=== PATIENT | female | born 1975 | race Caucasian/White ===

== ENCOUNTER 2019-06-18 13:45 | Inpatient (IN) ==
[2019-06-18 14:42] LABS: URINE SOURCE CLEAN CATCH
[2019-06-18 14:46] LABS: BILIRUBIN URINE NEGATIVE (NEGATIVE); BLOOD URINE TRACE (NEGATIVE); COLOR YELLOW; GLUCOSE URINE 500 mg/dL (NEGATIVE); KETONE URINE 40 mg/dL (NEGATIVE); LEUKOCYTES URINE SMALL (NEGATIVE); NITRITE URINE NEGATIVE (NEGATIVE); PROTEIN URINE 100 mg/dL (NEGATIVE); SP GRAVITY URINE 1.016; TURBIDITY URINE CLEAR (CLEAR); UR EPITHELIAL CELLS <10 /HPF (<10); URINE BACTERIA 1+ /HPF; URINE RBC <10 /HPF (<10); URINE WBC <10 /HPF (<10); UROBILINOGEN URINE NORMAL (NORMAL)
[2019-06-18 16:31] LABS: BASO# 0.01 X1000 (0.0-0.2); BASO% 0.1 % (0.0-0.8); EOS# 0.08 X1000 (0.0-0.7); EOS% 0.8 % (0.0-10.0); HEMATOCRIT 39.2 % (37.0-47.0); HEMOGLOBIN 13.6 g/dL (12.0-16.0); IMM GRAN# 0.05 X1000 (0.0-0.04); IMM GRAN% 0.5 % (0.0-0.5); LYMPH# 1.06 X1000 (1.2-3.4); LYMPH% 10.3 % (20.5-51.1); MCH 32.4 PG (27-31); MCHC 34.7 g/dL (33-37); MCV 93.3 FL (81-99); MONO# 0.97 X1000 (0.11-0.59); MONO% 9.4 % (1.7-9.3); MPV 8.8 FL (7.4-10.4); NEUT% 78.9 % (42.2-75.2); PLT 321 X1000 (130-400); WBC 10.27 X1000 (4.8-10.8)
--- NOTE | 2019-06-18 16:47 | Diag Imaging Result Doc PS360 ---
EXAM: CT HEAD W/O CONTRAST HISTORY: seizure TECHNIQUE: CT head without contrast COMPARISON: 02/28/2018 FINDINGS: No parenchymal hemorrhage. No epidural or subdural hematoma. No subarachnoid hemorrhage. No mass identified on this noncontrasted exam. No hydrocephalus. No sinus opacification. IMPRESSION: No hemorrhage. Negative brain CT without contrast. This exam was performed using automated exposure control, adjustment of mA or kV according to patient size, and/or use of iterative reconstruction technique. Electronically signed by Jun De La O 06/18/2019 4:45 PM
--- NOTE | 2019-06-18 17:02 | EKG Report ---
Test Performed on : 06/18/2019 4:56:49 PM Test Reason : seizure Blood Pressure : / mmHG Vent. Rate : 106 BPM Atrial Rate : 106 BPM P-R Int : 160 ms QRS Dur : 100 ms QT Int : 340 ms P-R-T Axes : 058 021 023 degrees QTc Int : 451 ms Sinus tachycardia. Possible Left atrial enlargement Cannot rule out Anterior infarct , age undetermined Abnormal ECG When compared with ECG of 14-FEB-2018 08:50, Nonspecific T wave abnormality no longer evident in Anterior leads Unconfirmed Result
[2019-06-18 17:06] LABS: AGAP 16; ALB/GLOB RATIO 1.1; ALBUMIN 3.8 g/dL (3.5-5.0); ALKALINE PHOSPHATASE 177 U/L (32-104); BUN 4 mg/dL (8-22); CALCIUM 9.5 mg/dL (8.8-10.2); CHLORIDE 84 mmol/L (98-107); COSMO 242; CREATININE 0.4 mg/dL (0.5-0.9); ESTIMATED GFR > 60; GLUCOSE 245 mg/dL (70-104); GOT 22 U/L (10-30); GPT 20 U/L (10-36); POTASSIUM 3.9 mmol/L (3.5-5.1); TCO2 17 mmol/L (25-35); TOTAL BILIRUBIN 0.26 mg/dL (0.20-1.00); TOTAL PROTEIN 7.2 g/dL (6.3-8.3)
[2019-06-18] MEDS ORDERED: NS 1,000 ML IV ONE (17:10)
[2019-06-18] MEDS ORDERED: ZOFRAN IV ONE (17:10)
[2019-06-18 17:12] LABS: SODIUM 118 mmol/L (136-145)
--- NOTE | 2019-06-18 17:14 | Diag Imaging Result Doc PS360 ---
EXAM: CHEST-1 VIEW HISTORY: cough TECHNIQUE: Chest single view COMPARISON: None. FINDINGS: Poor inspiratory effort. The heart is not enlarged. The vessels are not distended. There are no infiltrates. No effusion identified. IMPRESSION: No pneumonia Electronically signed by Jun De La O 06/18/2019 5:11 PM
[2019-06-18] MEDS ORDERED: DILANTIN IV ONE (17:20)
--- NOTE | 2019-06-18 17:25 | PROVIDER DOCUMENTATION ---
This chart was entered by Negra Nava Scribe, acting as scribe for Minh Gonzalez MD. HPI-General Adult - General Stated Complaint: SEIZURE Time Seen by Provider: 06/18/19 14:01 Source: patient ( pt), EMS, other (caregiver) Allergies/Adverse Reactions: Patient Allergies Allergy/AdvReac Type Severity Reaction Status Date / Time codeine Allergy HIVES Verified 06/18/19 16:35 Penicillins Allergy RASH Verified 06/18/19 16:35 Home Medications: Home Medication List Medication Instructions Recorded Confirmed Last Taken Type Cetirizine [Zyrtec] 10 mg PO DAILY 11/17/15 06/18/19 06/18/19 History Divalproex Sodium 2 tab PO BID 11/17/15 06/18/19 06/18/19 History Docusate Sodium [Doc-Q-Lace] 100 mg PO BID 11/17/15 06/18/19 06/18/19 History Escitalopram [Lexapro] 20 mg PO DAILY 11/17/15 06/18/19 06/18/19 History Glipizide [Glipizide Xl] 10 mg PO BID 11/17/15 06/18/19 06/18/19 History Metformin HCl 2 tab PO BID 11/17/15 06/18/19 06/18/19 History Phenytoin Sodium Extended 200 mg PO 0700,1900 01/22/16 06/18/19 06/18/19 History [Dilantin] Amlodipine Besylate/Benazepril 1 each PO DAILY 01/21/18 06/18/19 06/18/19 History [Amlodipine-Benazepril 5-20 mg] Atorvastatin Calcium 20 mg PO DAILY 01/21/18 06/18/19 06/17/19 History Medroxyprogesterone Acetate 150 mg IM DIRECTED 01/21/18 06/18/19 04/15/19 History [Depo-Provera] Sitagliptin Phosphate [Januvia] 100 mg PO DAILY 01/21/18 06/18/19 06/18/19 History Zolpidem [Ambien] 5 mg PO QHS 05/08/18 06/18/19 06/17/19 History Lorazepam 0.5 mg PO QAM 60 Days #60 tab 09/09/2706/18/19 06/18/19 Rx Polyethylene Glycol 3350 [Miralax] 17 gm PO BID 30 Days #1 powder, 05/11/18 06/18/19 06/18/19 Rx packet Fluticasone 50 Mcg Nasal [place] 2 spr INH DAILY 06/18/19 06/18/19 06/18/19 History [Flonase] Linaclotide [Linzess] 1 cap PO DAILY 06/18/19 06/18/19 06/18/19 History Melatonin 1 cap PO QHS 06/18/19 06/18/19 06/17/19 History Mirtazapine [Remeron] 0.5 tab PO QHS 06/18/19 06/18/19 06/17/19 History Multivitamin [Multivitamins] 1 tab PO DAILY 06/18/19 06/18/19 06/18/19 History Omeprazole [Prilosec] 1 cap PO QAM 06/18/19 06/18/19 06/18/19 History Quetiapine [Seroquel] 1 tab PO QHS 06/18/19 06/18/19 06/17/19 History Ziprasidone [Geodon] 1 cap PO BID 06/18/19 06/18/19 06/18/19 History - History of Present Illness -Gen Adult Nature of Presenting Problems: 43 yowf presents to the ed via ems (first response) post seizure like activity. pt has caregiver at bedside and pt is back to baseline on exam in ed. pt is nontoxic in appearance. caregiver witnessed seizure and sts has been years since her last seizure. pt was sitting in a chair when she began to shake. pt has noted wound to medial RLE looks to be healing well. caregiver sts pt has colon cancer and the last 2 days has not felt well and had diarrhea . Location of Pain/Injury: reports: none Pain Radiation: reports: no radiation Quality of Pain: reports: none Severity: reports: moderate Onset/Duration: reports: just prior to arrival Timing: reports: gone now Context/Activities at Onset: reports: light activity Modifying Factors: improves with: nothing Associated Symptoms: reports: diarrhea, seizure. denies: back/neck pain, chest pain, cough, diaphoresis, fever/chills, headaches, nausea, shortness of breath, vomiting Similar Symptoms Previously?: Yes (hx of seizures) Recently seen or treated by another doctor?: No Review of Systems - Adult - REVIEW OF SYSTEMS - ADULT ROS:: caregiver with pt Constitutional: denies: chills, fever Eyes: reports: no symptoms reported Ears, Nose, Mouth & Throat: reports: no symptoms reported Cardiovascular: denies: chest pain, palpitations Respiratory: denies: cough, shortness of breath, wheezing Gastrointestinal: reports: see HPI, diarrhea. denies: nausea, vomiting Genitourinary: reports: no symptoms reported Musculoskeletal: denies: back pain, neck pain Integumentary: reports: no symptoms reported Neurological: reports: see HPI, seizure. denies: dizziness/vertigo, headache/migraines Psychiatric: reports: no symptoms reported Endocrine: reports: no symptoms reported Hematologic/Lymphatic: reports: no symptoms reported Allergic/Immunologic: reports: no symptoms reported All Other Systems: Reviewed and Negative Past History - Adult - PAST MEDICAL HISTORY-ADULT Review of Records: reports: Old Records Reviewed, Nursing Assessment Review, Medications Reviewed, Social history reviewed & non-contributory. Major Childhood Illnesses: reports: denies history Cardiovascular: reports: HTN, hyperlipidemia Respiratory: reports: denies history Gastrointestinal: reports: cancer (stage 3 colon) Genitourinary: reports: denies history Musculoskeletal: reports: denies history Neurological: reports: cognitive dysfunction (MR), Seizures/Epilepsy Psychiatric: reports: denies history Endocrine/Immune: reports: Diabetes Diabetes Type: Type 2 Other Conditions: reports: denies history - PRIOR SURGERIES/PROCEDURES Surgical/Procedure History: reports: colonoscopy, cholecystectomy - IMMUNIZATION STATUS Childhood Immunizations: See Nurse Assessment Flu Vaccine: See Nurse Assessment - FAMILY HISTORY Family History: reviewed, not pertinent - SOCIAL HISTORY Smoking: denies Substance Use: denies Alcohol Use Frequency: never Living Situation: care facility Physical Exam-General - PHYSICAL EXAM-ADULT Initial Vital Signs Reviewed: Yes - CONSTITUTIONAL General Appearance: appears well, alert, no apparent distress (pt is back to baseline MR pt), obese - EYES Eyes: PERRL/EOMI, pink conjunctivae - HEAD, EARS, NOSE, MOUTH & THROAT HENMT: moist mucous membranes - NECK Neck: non-tender, full range of motion, supple, normal inspection - RESPIRATORY Respiratory: chest non-tender, lungs clear, normal breath sounds, increased rate (36) - CARDIOVASCULAR Cardiovascular: normal peripheral pulses, tachycardia (114) - CHEST (BREASTS) Chest/Breast: deferred - GASTROINTESTINAL (ABDOMEN) Abdominal Exam: normal bowel sounds, non tender, soft, no organomegaly, no pulsatile mass - GENITOURINARY Female Genitalia/Pelvic Exam: deferred Rectal Exam: deferred Hemoccult Exam: deferred - LYMPHATIC Lymphatic: no adenopathy - MUSCULOSKELETAL Back Exam: normal inspection, no CVA tenderness, no vertebral tenderness Extremity: normal range of motion, non-tender, normal capillary refill, other (has small wound noted to anterior medial RLE. looks to be healing well) - SKIN Integumentary: normal color, normal turgor, warm/dry, other (small wound noted to RLE) - NEUROLOGIC Neurologic: grossly normal - PSYCHIATRIC Psych/Mental Status: oriented x 3 Progress - PLAN OF CARE/RESULTS Progress/Plan/Lab Results: Orders Category Date Time Status CT HEAD W/O CONTRAST [CT] Stat Exams 06/18/19 14:02 Ordered CBC WITH DIFF [HEME] Stat Lab 06/18/19 14:02 Uncollected COMPREHENSIVE METABOLIC PANEL [CHEM] Stat Lab 06/18/19 14:02 Uncollected PHENYTOIN [TDM] Stat Lab 06/18/19 14:02 Uncollected URINALYSIS W/POSS RFLX CULT [URINALYSIS] Stat Lab 06/18/19 14:02 Uncollected EKG [EKG] Stat Ther 06/18/19 14:02 Ordered Result Diagrams: 06/18/19 16:25 06/18/19 16:25 - REASSESSMENT Reassessment #1 Time Reassessed: 14:23 Status: unchanged (pt still feels not well) Reassessment Comment: dr gonzalez at bedside Reassessment #2 Time Reassessed: 17:04 Status: unchanged (pt now nausea and vomiting) Reassessment Comment: dr gonzalez at bedside - EKG 1 Time of EKG reading by physician:: 16:56 EKG Read and Signed by:: Minh Gonzalez EKG Interpretation (*Must complete 3 of following elements*): Abnormal Rate: 106 Rhythm: sinus tachycardia [place]: normal QRS: other (possible left atrial enlargmeent) PA Interval: normal ST Wave: normal Comments: cannot rule out anterior infarct, age undetermined - XRAY 1 XRAY: Bilateral XRAY Study: Chest Impression: See EMR Report (EXAM: CHEST-1 VIEW HISTORY: cough TECHNIQUE: Chest single view COMPARISON: None. FINDINGS: Poor inspiratory effort. The heart is not enlarged. The vessels are not distended. There are no infiltrates. No effusion identified. IMPRESSION: No pneumonia Electronically signed by Jun De La O 06/18/2019 5:11 PM 06/18/19 1711 Interpreting Physician: Jun De La O MD Dictated Date/Time: 06/18/19 1711 cc: Minh Gonzalez MD; Heladio Silverman MD) - CT/MRI 1 CT Study: Head Impression: See EMR Report (EXAM: CT HEAD W/O CONTRAST HISTORY: seizure TECHNIQUE: CT head without contrast COMPARISON: 02/28/2018 FINDINGS: No parenchymal hemorrhage. No epidural or subdural hematoma. No subarachnoid hemorrhage. No mass identified on this noncontrasted exam. No hydrocephalus. No sinus opacification. IMPRESSION: No hemorrhage. Negative brain CT without contrast. This exam was performed using automated exposure control, adjustment of mA or kV according to patient size, and/or use of iterative reconstruction technique. Electronically signed by Jun De La O 06/18/2019 4:45 PM 06/18/19 1645 Interpreting Physician: Jnu De La O MD Dictated Date/Time: 06/18/19 1644 cc: Minh Gonzalez MD; Heladio Silverman MD) - CONSULTS/PCP/HOSPITALIST Notification #1 *Consult/PCP/Hospitalist*: hospitalist Time Discussed: 17:20 (spoke with Rosalia) Consult Disposition: Admit Departure - Departure Date of Disposition Decision: 06/18/19 Time of Disposition Decision: 17:23 DIAGNOSIS: Seizure, Hyponatremia, Abdominal pain, UTI (urinary tract infection) Disposition: ADMITTED INPATIENT 09 Certified Medical Emergency: Emergent Condition: Fair Referrals and Follow-Ups: Heladio Silverman MD [Primary Care Provider] - - Critical Care Note This patient required my direct & personal management of CC.: Yes Total Time (mins): 37 Critical Care Statement: This patient required my direct personal management to treat or rule out processes, the absence of which, could potentiallly result in sudden, clinically significant life or limb threatening deterioration. Attestation - Physician/ IVETTE Attestation Patient care was provided by Advanced Practice Provider:: No The physician spent face to face time with patient:: Yes Advanced Practice Provider documentation review:: Supervising physician onsite and consulted in the evaluation and care of this patient. The physician did have a face to face encounter with the patient. This chart was documented by the indicated scribe, (Negra Nava Scribe) and accurately reflects the services I performed and decisions made by me, Minh Gonzalez MD, as attested by the provider's signature.
[2019-06-18] MEDS ORDERED: ATIVAN IV ONE ×2 (17:48→18:15)
[2019-06-18] MEDS ORDERED: LOPRESSOR IV ONE (17:48)
[2019-06-18] MEDS ORDERED: ATIVAN IV PRN (17:49)
[2019-06-18 17:50] LABS: INR 0.99; PROTIME 13.2 Seconds (11.0-16.0); PTT 25.6 Seconds (22.3-41.8)
[2019-06-18] MEDS ORDERED: ZOFRAN IV PRN (17:58)
[2019-06-18] MEDS ORDERED: NS 1,000 ML IV SCH ×2 (18:00→22:45)
[2019-06-18] MEDS: DILANTIN PO SCH ×2 (18:45→20:34)
--- NOTE | 2019-06-18 19:55 | Diag Imaging Result Doc PS360 ---
EXAM: CT THORAX/ABD/PELVIS W/CON HISTORY: cough/sob/abd pain/diarrhea TECHNIQUE: 1. CT chest with intravenous contrast 2. CT abdomen and pelvis with intravenous contrast COMPARISON: 11/18/2018 FINDINGS: Chest: No pleural effusions. No cardiomegaly. Pulmonary edema. No enlarged lymph nodes. No consolidation. No lung mass. No bronchiectasis. Mild scoliosis. Abdomen and pelvis: The gallbladder has been removed. Overall increase in the size of the largest hepatic hypodense masses. The largest measures almost 5 cm in size on the current exam. Normal spleen, pancreas, adrenal glands, and kidneys. No hydronephrosis. Normal aorta. No bowel obstruction. Normal appendix. No abscess. No ascites. The urinary bladder is distended and is normal. Normal uterus. IMPRESSION: Chest: Pulmonary edema Abdomen and pelvis: Worsening hepatic metastases. This exam was performed using automated exposure control, adjustment of mA or kV according to patient size, and/or use of iterative reconstruction technique. Electronically signed by Jun De La O 06/18/2019 7:52 PM
--- NOTE | 2019-06-18 19:55 | HISTORY AND PHYSICAL ---
PRIMARY CARE PROVIDER: Dr. Heladio Silverman. CHIEF COMPLAINT: Abdominal pain with diarrhea, cough, and shortness of breath. HISTORY OF PRESENT ILLNESS: Ms. Radha Wick is a 43-year-old female with a medical history of mental retardation, diabetes mellitus type 2, seizure disorder, and colon cancer with colectomy, and possible liver cancer, followed by Dr. Mcclain. She now presents with a 1-day history of excessive diarrhea, a cough that has started over the last 24 hours as well. There is no discoloration of the stool. It is brown and loose. She has had generalized abdominal pain. No recent antibiotic therapy. Not coughing up any colors in particular. She did have a seizure at her [facility] today which is what brought her in, according to the sitter who is currently at the bedside. She has been drinking excessive amounts of water. Labs shows that she is hyperglycemic and hyponatremic. During examination, there were no abnormal breath sounds, but she did have excessive bouts of aggressive coughing with anxiety and shortness of breath, so we will do an admission and we will further evaluate and treat. PAST MEDICAL HISTORY: 1. Colon cancer with colectomy. 2. Seizure disorder. 3. Mental retardation. 4. Diabetes mellitus type 2. 5. History of pulmonary emboli. 6. Anxiety. 7. Frequent urinary tract infections. 8. History of hyponatremia. 9. History of diarrhea secondary to colon resection. SURGICAL HISTORY: 1. Cholecystectomy. 2. Descending colectomy. SOCIAL HISTORY: No tobacco, alcohol, or illicit drug use. She is a current resident in a [facility]. She has sitters with her at this time. FAMILY HISTORY: Unknown. ALLERGIES: Codeine and penicillin. HOME MEDICATIONS: 1. Ambien 5 mg p.o. nightly. 2. Melatonin 5 mg p.o. nightly. 3. Remeron 7.5 mg p.o. nightly. 4. Seroquel 200 mg p.o. nightly. 5. Amlodipine/benazepril 5/20 one tablet p.o. daily. 6. Atorvastatin calcium 20 mg p.o. daily. 7. Depo-Provera. 8. Dilantin 200 mg p.o. twice daily. 9. Depakote 1000 mg p.o. twice daily. 10. Docusate sodium 100 mg p.o. twice daily. 11. Flonase intranasally daily. 12. Geodon 40 mg p.o. twice daily. 13. Glipizide 10 mg p.o. twice daily. 14. Januvia 100 mg p.o. daily. 15. Lexapro 20 mg p.o. daily. 16. Linzess 290 mg p.o. daily. 17. Metformin 1000 mg p.o. twice daily. 18. Multivitamin 1 tablet p.o. daily. 19. Prilosec 20 mg p.o. daily. 20. Zyrtec 10 mg p.o. daily. 21. Ativan 0.5 mg p.o. daily. 22. MiraLAX 17 g p.o. twice daily. REVIEW OF SYSTEMS: Difficult to obtain from the patient alone. A lot of symptoms were obtained through the sitters who are at the bedside. They deny that she had any kind of fevers. PHYSICAL EXAMINATION: VITAL SIGNS: Temperature 97.8 degrees, heart rate 108, respiratory rate 35, blood pressure 147/98, O2 saturation 100% on room air. She is 5 feet 4 inches tall, 154 pounds. BMI is 26.4. GENERAL: Ms. Radha Wick is a 43-year-old female. She is highly anxious, consistently requesting to sit on the side of the bed, although she was losing balance when she was able to get up to the bedside commode. She answers minimal questions. HEENT: Atraumatic, normocephalic. Pupils equal, round, reactive to light. Extraocular movements intact. Mucous membranes are dry. NECK: Trachea midline. CARDIOVASCULAR: S1, S2. Tachycardic rate and rhythm. No rubs, gallops, murmurs. No lower extremity edema. +2 dorsalis and radial pulses. Negative JVD or carotid bruits. PULMONARY: Clear to auscultate. Bilateral breath sounds. No accessory muscle use. She has work of breathing secondary to her anxiety and tolerating room air. She is tachypneic. GI: Soft, tender in all 4 quadrants. Positive bowel sounds x4. EXTREMITIES: Moves all extremities equally. Full range of motion. NEUROLOGIC: Unable to assess. She will not answer really questions, but she will talk. She is off balance with her standing. Sensory is intact. SKIN: Warm, dry, and intact except on the right avila she has an open wound which looks pretty angry. LABORATORY DATA: White blood cells 10,000, hemoglobin 13, hematocrit 39, platelet count 321,000. Sodium 118, potassium 3.9, BUN 4, creatinine 0.4, glucose 245, calcium 9.5, bilirubin 0.26, AST 22, ALT 20, alkaline false is 177, CK 159, troponin less than 0.01. Albumin is 3.8. Urinalysis: 100 protein, 500 glucose, 40 ketones, leukocytes small, less than 10 white blood cells, 1+ bacteria. test is negative and the phenytoin is 17.2. IMAGING: Chest x-ray: No pneumonia. Head CT: No acute findings. EKG: Sinus tachycardia, rate 106, QTc is 451. ASSESSMENT AND PLAN: 1. Hyponatremia, rule out syndrome of inappropriate antidiuretic hormone. She will get intravenous fluids with sodium with normal saline. Apparently, she has been drinking excessive amounts of water, so we will have to restrict her on the amount of volume of water that she drinks. She will get a CT of the chest to rule out any neoplasm since she has been having a cough and low sodium and she had colon cancer and a liver mass. 2. Seizure disorder, with recent seizure today. Her fosphenytoin level was actually normal. She got an intravenous dose of 100 mg of Phenytoin and she will have p.r.n. Ativan. 3. Significant anxiety. She will be given Ativan specifically prior to going for her CT. 4. Complaints of abdominal pain with diarrhea. Again, she is going to get some fluid hydration and will follow up with an abdominal/pelvic CT. 5. History of colon cancer with possible liver metastases. There is a liver mass. She is followed by Dr. Mcclain. He will be consulted. 6. Diabetes mellitus type 2, possibly uncontrolled. She has hyperglycemia. We will do sliding scale insulin, patterned blood glucoses, diabetic diet. 7. Mental retardation. She will likely have a sitter. 8. History of bilateral pulmonary emboli, January 2016. Currently on no anticoagulation at this time. 9. Gastroesophageal reflux disease. Continue her proton pump inhibitor. 10. Deep venous thrombosis prophylaxis with Lovenox 40 daily. Dictated by NISHI Briscoe for Francisco Almonte MD cc: NISHI BriscoeElvira, MD
[2019-06-18] MEDS: REMERON PO SCH (20:56)
[2019-06-18] MEDS: COLACE PO SCH (20:57)
[2019-06-18] MEDS: GEODON PO SCH (20:57)
[2019-06-18] MEDS: DEPAKOTE PO SCH (20:58)
[2019-06-18] MEDS: AMBIEN PO SCH (20:58)
[2019-06-18] MEDS: GLUCOPHAGE PO SCH (20:58)
[2019-06-18] MEDS: MELATONIN PO SCH (20:59)
[2019-06-18] MEDS: MIRALAX PO SCH (20:59)
[2019-06-18] MEDS: GLUCOTROL XL PO SCH (21:12)
[2019-06-18] MEDS: LOVENOX SUBQ SCH (21:17)
[2019-06-18 21:24] LABS: BASO# 0.02 X1000 (0.0-0.2); BASO% 0.2 % (0.0-0.8); EOS# 0.14 X1000 (0.0-0.7); EOS% 1.4 % (0.0-10.0); HEMATOCRIT 42.6 % (37.0-47.0); HEMOGLOBIN 15.3 g/dL (12.0-16.0); IMM GRAN# 0.03 X1000 (0.0-0.04); IMM GRAN% 0.3 % (0.0-0.5); LYMPH# 1.39 X1000 (1.2-3.4); MCH 33.6 PG (27-31); MCHC 35.9 g/dL (33-37); MCV 93.4 FL (81-99); MONO# 1.03 X1000 (0.11-0.59); MONO% 10.4 % (1.7-9.3); MPV 8.7 FL (7.4-10.4); NEUT# 7.33 X1000 (1.4-6.5); NEUT% 73.7 % (42.2-75.2); PLT 342 X1000 (130-400); RBC 4.56 XMIL (4.2-5.4); RDW 12.2 % (11.5-14.5); WBC 9.94 X1000 (4.8-10.8)
[2019-06-18 21:49] LABS: PROTIME 13.3 Seconds (11.0-16.0); PTT 24.8 Seconds (22.3-41.8)
[2019-06-18 21:50] LABS: ESTIMATED GFR > 60
[2019-06-18] MEDS: HUMULIN R SUBQ SCH (21:51)
[2019-06-18] MEDS: SEROQUEL PO SCH (21:53)
[2019-06-18 21:54] LABS: AGAP 19; ALBUMIN 4.1 g/dL (3.5-5.0); ALKALINE PHOSPHATASE 205 U/L (32-104); BUN 3 mg/dL (8-22); CALCIUM 10.1 mg/dL (8.8-10.2); CHLORIDE 89 mmol/L (98-107); CK PROFILE 352 U/L (24-173); COSMO 255; CREATININE 0.4 mg/dL (0.5-0.9); GLUCOSE 187 mg/dL (70-104); GOT 25 U/L (10-30); GPT 21 U/L (10-36); POTASSIUM 3.9 mmol/L (3.5-5.1); SODIUM 126 mmol/L (136-145); TCO2 18 mmol/L (25-35); TOTAL BILIRUBIN 0.27 mg/dL (0.20-1.00); TOTAL PROTEIN 8.1 g/dL (6.3-8.3)
[2019-06-18 22:08] LABS: CK INDEX 2.7 (0.0-2.5); CK-MB 9.56 ng/mL (0.0-5.0)
[2019-06-19 03:16] LABS: AGAP 14; BUN 2 mg/dL (8-22); CALCIUM 9.4 mg/dL (8.8-10.2); CHLORIDE 97 mmol/L (98-107); COSMO 270; CREATININE 0.4 mg/dL (0.5-0.9); ESTIMATED GFR > 60; GLUCOSE 162 mg/dL (70-104); POTASSIUM 4.2 mmol/L (3.5-5.1); SODIUM 135 mmol/L (136-145); TCO2 24 mmol/L (25-35)
[2019-06-19] MEDS ORDERED: D5W 1,000 ML IV SCH (06:30)
[2019-06-19 06:38] LABS: BASO# 0.01 X1000 (0.0-0.2); BASO% 0.2 % (0.0-0.8); EOS# 0.13 X1000 (0.0-0.7); EOS% 2.2 % (0.0-10.0); HEMATOCRIT 39.3 % (37.0-47.0); HEMOGLOBIN 13.7 g/dL (12.0-16.0); IMM GRAN# 0.03 X1000 (0.0-0.04); IMM GRAN% 0.5 % (0.0-0.5); LYMPH# 0.87 X1000 (1.2-3.4); LYMPH% 14.6 % (20.5-51.1); MCH 33.1 PG (27-31); MCHC 34.9 g/dL (33-37); MCV 94.9 FL (81-99); MONO# 0.65 X1000 (0.11-0.59); MONO% 10.9 % (1.7-9.3); MPV 9.1 FL (7.4-10.4); NEUT# 4.27 X1000 (1.4-6.5); NEUT% 71.6 % (42.2-75.2); PLT 344 X1000 (130-400); RBC 4.14 XMIL (4.2-5.4); RDW 12.5 % (11.5-14.5); WBC 5.96 X1000 (4.8-10.8)
[2019-06-19] MEDS: DILANTIN PO SCH ×3 (06:44→20:57)
[2019-06-19 06:49] LABS: AGAP 16; ALB/GLOB RATIO 1.1; ALBUMIN 3.7 g/dL (3.5-5.0); ALKALINE PHOSPHATASE 175 U/L (32-104); BUN 2 mg/dL (8-22); CALCIUM 9.3 mg/dL (8.8-10.2); CHLORIDE 100 mmol/L (98-107); COSMO 278; CREATININE 0.4 mg/dL (0.5-0.9); ESTIMATED GFR > 60; GLUCOSE 177 mg/dL (70-104); GOT 18 U/L (10-30); GPT 17 U/L (10-36); MAGNESIUM 1.7 mg/dL (1.5-2.7); POTASSIUM 3.8 mmol/L (3.5-5.1); SODIUM 139 mmol/L (136-145); TCO2 23 mmol/L (25-35); TOTAL BILIRUBIN 0.21 mg/dL (0.20-1.00); TOTAL PROTEIN 7.2 g/dL (6.3-8.3)
[2019-06-19] MEDS: HUMULIN R SUBQ SCH ×4 (07:22→21:00)
[2019-06-19] MEDS: DEPAKOTE PO SCH ×2 (08:02→20:59)
[2019-06-19] MEDS: GEODON PO SCH ×2 (08:02→20:58)
[2019-06-19] MEDS: PRILOSEC PO SCH (08:02)
[2019-06-19] MEDS: MIRALAX PO SCH ×2 (08:03→20:59)
[2019-06-19] MEDS: ZYRTEC PO SCH (08:03)
[2019-06-19] MEDS: COLACE PO SCH ×2 (08:03→20:59)
[2019-06-19] MEDS: GLUCOPHAGE PO SCH ×2 (08:08→20:58)
[2019-06-19] MEDS: GLUCOTROL XL PO SCH ×2 (08:10→20:58)
[2019-06-19] MEDS ORDERED: D5W 500 ML IV SCH (08:45)
[2019-06-19] MEDS ORDERED: LEXAPRO PO SCH (09:00)
[2019-06-19] MEDS ORDERED: ATIVAN PO SCH (09:00)
--- NOTE | 2019-06-19 09:43 | HEMO/ONC CONSULTATION ---
DATE: 06/19/2019 REASON FOR CONSULTATION: Ms. Wick is a known patient of ours for the treatment of colon adenocarcinoma, status post colon resection. HISTORY OF PRESENT ILLNESS: Ms. Wick is a 43-year-old female with a history of mental retardation and colon adenocarcinoma status post colon resection in February 2018. She presented to the ER yesterday with a 24 hour history of excessive diarrhea and a cough. The patient resides at a shelter and her sitters noticed that she has been drinking an excessive amount of water. She had a seizure yesterday afternoon, which is what brought her to the ER. Yesterday she complained of generalized abdominal pain. She denied dark tarry stools. She denies any recent change in her medical history. The ER found her to have hyperglycemia and hyponatremia. Ms. 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 She is status post colon resection in February 2018 and diagnosed with liver metastasis in June 2018. She had a SIR-spheres placed on 09/23/2018. She routinely follows up every 3 months in the office. Her last restaging CT scan showed abnormalities of increased metastasis in the liver. Her most recent EGD and colonoscopy with Dr. Wilson was in November 2018. She continues with yearly colonoscopies. The patient's next restaging CT scan is scheduled for next Sunday with a follow-up appointment the following week. PAST MEDICAL HISTORY: 1. Colon cancer with colectomy. 2. Seizure disorder. 3. Mental retardation. 4. Diabetes mellitus type 2. 5. History of pulmonary emboli. 6. Anxiety. 7. Frequent urinary tract infection. 8. History of hyponatremia. 9. History of diarrhea secondary to colon resection. SURGICAL HISTORY: 1. Cholecystectomy. 2. Descending colectomy. SOCIAL HISTORY: The patient resides in a shelter. She denies tobacco, alcohol, or illicit drug use. ALLERGIES: To codeine and penicillin. HOME MEDICATIONS: Ambien, melatonin, Remeron, Seroquel, amlodipine/benazepril, atorvastatin calcium, Depo-Provera, Dilantin, Depakote, docusate sodium, Flonase, Geodon, glipizide, Januvia, Lexapro, Linzess, metformin, multivitamin, Prilosec, Zyrtec, Ativan and MiraLAX. REVIEW OF SYSTEMS: Pertinent positives are noted in the HPI. However, patient denies any complaints this morning. Vital Signs: Temperature 98.1 degrees, pulse rate 96, respiratory rate 29, blood pressure 132/88, O2 saturation 100% on room air. She is in 0/10 pain. PHYSICAL EXAMINATION: General: The patient appears in no acute distress. She is answering questions appropriately for me. She wishes to get out of bed. She requested a wheelchair. HEENT: Sclerae is anicteric. PERRLA. Mucous membranes are slightly dry. Cardiovascular: Normal S1, S2. No murmurs, gallops, or rubs appreciated. Respiratory: Lungs are clear to auscultation. Normal respiratory effort. Gastrointestinal: Abdomen is soft, nontender, nondistended. No hepatosplenomegaly appreciated. Bowel sounds are positive. Neurological: Alert and oriented. No focal motor deficits. Skin: Warm, dry, and intact without petechiae or ecchymosis. Extremities: Moves all extremities at will. No lower extremity edema noted. Wound to the right avila. LABORATORY: WBCs 5.96, hemoglobin 13.7, hematocrit 39.3, platelet count 344,000. Sodium 135 today, 126 yesterday. Glucose 162. Alkaline phosphatase 175. RADIOLOGY: CT abdomen pelvis: worsening hepatic metastasis and pulmonary edema. Chest x-ray: negative for pneumonia. Head CT: negative brain CT, no hemorrhage. ASSESSMENT AND PLAN: 1. Mental retardation. Radha is high functioning and she is a very well cared for by her mother and sitters. 2. Abdominal pain with diarrhea. Continue medical management. 3. History of colon cancer with liver metastasis. Her liver metastasis are known to us in the office. We will continue to follow her every 3 months. The patient has an appointment with us in the office in 2 weeks. We will follow up with her outpatient. This scan is compared to scan from 11/26. We may have to compare it to the most recent scan. Dictated by NISHI Michel for Kevon Mcclain MD cc: Kevon Mcclain MD [facility]
--- NOTE | 2019-06-19 12:49 | NEPHROLOGY CONSULTATION ---
DATE: 06/19/2019 REASON FOR CONSULTATION: Hyponatremia. PRESENT ILLNESS: Ms. Wick is a 43-year-old, white female who has multiple medical problems including diabetes, hypertension, history of pulmonary emboli, history of hyponatremia. She admits that she was drinking "water and water and water". She was brought to the hospital on the evening of the for abdominal discomfort, cough, and shortness of breath. Her evaluation in the emergency room found her sodium 118. She was admitted to the hospital and treated with normal saline. In this context, her sodium improved from 118 to 135 between 1625 on the th and 0250 on the . At the time of my exam at 0630, she was awake, alert, able to answer all questions. No new symptoms. PAST MEDICAL HISTORY: As above. She also has a history of colon cancer. HOME MEDICATIONS: Include escitalopram, metformin, docusate, divalproex, glipizide, cetirizine, phenytoin, amlodipine, atorvastatin, Depo-Provera, sitagliptin, zolpidem, polyethylene glycol, lorazepam, Linzess, melatonin, mirtazapine, multivitamin, quetiapine, Geodon, fluticasone, and omeprazole. ALLERGIES: Codeine and penicillin. SOCIAL HISTORY: Lives in a correction. FAMILY HISTORY: Otherwise noncontributory. REVIEW OF SYSTEMS: Otherwise noncontributory. PHYSICAL EXAMINATION: Vital Signs: Blood pressure 109/71, heart rate 96, respirations 33, afebrile. Generally, middle-aged woman lying in bed. No acute distress. Skin is warm and dry. Conjunctivae are pink. Pupils are equal. Oropharynx is clear. Tongue is moist. Neck: Supple. Neck veins are not distended. Trachea is midline. Heart: Regular. PMI nonpalpable. Lungs: Have equal breath sounds. No crackles or wheezes. Abdomen: Soft, nontender. Bowel sounds present. No organomegaly, masses, or bruits. Extremities: No edema, clubbing, or cyanosis. IMPRESSION: Hyponatremia. Urine osmolality was 471 at the time that her serum osmolality was 242. This certainly suggests syndrome of inappropriate antidiuretic hormone secretion, though she responded very briskly to simple normal saline and a free water restriction. Her sodium actually corrected at a faster than planned rate. I have administered 500 mL of D5W and will recheck her sodium. Her medication list includes multiple medications that could be potential confounders with regard to hyponatremia. This includes escitalopram. I would recommend discontinuation of escitalopram if possible. No other changes at this time. cc: Joseph Rivas MD
--- NOTE | 2019-06-19 14:47 | CONSULTATION ---
DATE OF CONSULTATION: 06/19/2019 Ms. Wick is a young woman with static encephalopathy, mental retardation, chronic seizure disorder with very infrequent seizures. She presented after a seizure at her [facility]. Sodium was 118, corrected after admission to 139. She may have seemed a little bit altered mentally from baseline, but has recovered to baseline with correction of sodium. According to [facility] staff, last seizure was several years ago. I had seen Ms. Wick in years past with history of greater than 15 year seizure-free with phenytoin and divalproex. She had a likely seizure episode a few years ago and doses were adjusted. She had tremor with higher divalproex dose. She was a little bit ataxic with phenytoin 500 mg daily and level in the mid 20s. She has tolerated current management with phenytoin 200 mg b.i.d. and divalproex 1000 mg b.i.d. Phenytoin level was 17.2 this admission. We do not have valproic acid level reported at time of this dictation. Lab showed blood sugars in the 200s improved to 100s today. WBC was initially around 10,000, around 6000 today. She has been afebrile. Noncontrast CT of the head was unremarkable. Last EEG report that I have was 11/16/2017, sleep-deprived EEG showing generalized discharges and generalized slowing. I last saw her in 2017. I believe she has been seeing Dr. Reagan Tracy in [place] for neurology management in recent years. On exam, Ms. Wick is awake, alert, attentive, cheerful, talkative, very spontaneous. There is not clear focal neurologic deficit on limited bedside testing. Head and neck are unremarkable. There is no meningismus. She appears to be at her baseline mentally. Since this seizure occurred with significant hyponatremia, I do not think we need to make any changes to her seizure medication regimen. I told [facility] staff present at the bedside to continue current phenytoin and divalproex doses, and to keep followup with Dr. Tracy. If she has seizure without obvious toxic or metabolic explanation, we might reconsider medication changes. Thanks for asking neurology to see Ms. Wick. cc: MD PHOEBE Brito III
--- NOTE | 2019-06-19 15:44 | PROGRESS NOTE ---
DATE: 06/19/2019 SUBJECTIVE: The patient is resting comfortably in bed. She states that she wants to go home. No acute events noted overnight. OBJECTIVE: Vital Signs: Temperature 98.6 degrees, blood pressure 112/70, heart rate 92, respirations 22, O2 saturations 97% on room air. General: This is a middle- aged female sitting up in bed in no acute distress. Heart: S1, S2 normal. Tachycardic. Lungs: Clear to auscultation bilaterally. Abdomen: Positive bowel sounds. Soft, nontender, nondistended. Extremities: No edema, no cyanosis. Neurologic: The patient is alert and oriented x3. LABS: Sodium 134, potassium 3.8, chloride 100, CO2 23, BUN 2, creatinine 0.4, glucose 285. ASSESSMENT AND PLAN: 1. Hyponatremia. The patient's sodium is a little bit higher than anticipated. The patient received dextrose this morning and the sodium is slowly coming down. We will continue to monitor the sodium closely. We will continue to hold the Lexapro. 2. Seizure. This was likely secondary to the patient's low sodium. The patient does have chronic seizure disorder. The patient has been seen by the neurologist who recommended continuing the current antiseizure medications. 3. Diabetes mellitus type 2. Continue with sliding scale insulin. 4. Mental retardation. Aware. 5. History of colon cancer with colectomy. Aware. 6. Deep vein thrombosis prophylaxis. Continue on Lovenox. 7. Disposition. The patient will be transferred to the medical floor. We will consult with physical therapy to mobilize the patient. We will plan to discharge the patient once her sodium stabilizes. cc: Aniya Rendon MD [facility]
[2019-06-19] MEDS: MELATONIN PO SCH (20:58)
[2019-06-19] MEDS: AMBIEN PO SCH (20:58)
[2019-06-19] MEDS: REMERON PO SCH (20:59)
[2019-06-19] MEDS: SEROQUEL PO SCH (20:59)
[2019-06-19] MEDS: LOVENOX SUBQ SCH (21:00)
[2019-06-20 05:39] LABS: HEMATOCRIT 36.3 % (37.0-47.0); HEMOGLOBIN 12.1 g/dL (12.0-16.0); MCH 32.9 PG (27-31); MCHC 33.3 g/dL (33-37); MCV 98.6 FL (81-99); MPV 9.2 FL (7.4-10.4); RBC 3.68 XMIL (4.2-5.4); RDW 12.9 % (11.5-14.5); WBC 4.77 X1000 (4.8-10.8)
[2019-06-20 05:59] LABS: AGAP 15; BUN 3 mg/dL (8-22); CALCIUM 8.8 mg/dL (8.8-10.2); CHLORIDE 102 mmol/L (98-107); COSMO 274; CREATININE 0.4 mg/dL (0.5-0.9); ESTIMATED GFR > 60; GLUCOSE 190 mg/dL (70-104); POTASSIUM 4.6 mmol/L (3.5-5.1); SODIUM 136 mmol/L (136-145); TCO2 19 mmol/L (25-35)
[2019-06-20] MEDS: HUMULIN R SUBQ SCH ×2 (06:26→12:28)
[2019-06-20] MEDS: DILANTIN PO SCH (06:27)
[2019-06-20] MEDS ORDERED: ATIVAN PO SCH (09:00)
[2019-06-20] MEDS: DEPAKOTE PO SCH (09:54)
[2019-06-20] MEDS: GLUCOTROL XL PO SCH (09:54)
[2019-06-20] MEDS: GEODON PO SCH (09:54)
[2019-06-20] MEDS: GLUCOPHAGE PO SCH (09:54)
[2019-06-20] MEDS: COLACE PO SCH (09:54)
[2019-06-20] MEDS: ZYRTEC PO SCH (09:54)
[2019-06-20] MEDS: PRILOSEC PO SCH (09:54)
[2019-06-20] MEDS: MIRALAX PO SCH (09:55)
[2019-06-20] MEDS ORDERED: MACROBID PO ONE (11:54)
[2019-06-20 12:45] VITALS: BP 141/99
--- NOTE | 2019-06-23 07:13 | DISCHARGE SUMMARY ---
ADMISSION DATE: 06/18/2019 DISCHARGE DATE: 06/20/2019 FINAL DISCHARGE DIAGNOSES: 1. Hyponatremia. 2. Seizure secondary to severe hyponatremia. 3. Anxiety disorder. 4. Metastatic colon cancer. 5. Mental retardation. 6. Urinary tract infection secondary to Escherichia coli. 7. Gastroesophageal reflux disease. 8. Chronic constipation. 9. Diabetes mellitus type 2. CONSULTATIONS: Nephrology consultation with Dr. Rivas. HOSPITAL COURSE: Ms. Wick is a 43-year-old female with a history of multiple medical problems who was brought to the ER after having a seizure at her residential. The patient had also been complaining of abdominal pain as well as nausea and vomiting. Upon arrival to the ER, it was noted that the patient's sodium was 118. The patient was admitted to the hospitalist service and transferred to the ICU. The patient was initially treated with normal saline and free water restriction. The patient was noted to be on Lexapro and that was held. Over the course of the hospitalization, the patient's sodium improved. It was thought that the patient's seizure was secondary to the low sodium. No changes in the patient's seizure medications were made during this hospitalization. The patient improved and was transferred to the medical floor. The patient was also treated for urinary tract infection secondary to Escherichia coli. The patient continued to improve clinically and was ultimately cleared for discharge home. The patient was advised to adhere to a 1.2 L fluid restriction. DISCHARGE MEDICATIONS: 1. Macrobid 100 mg oral twice a day x5 days. 2. Metformin 1000 mg oral twice a day. 3. Colace 100 mg oral twice a day. 4. Depakote 500 mg oral twice a day. 5. Glipizide XL 10 mg p.o. twice a day. 6. Zyrtec 10 mg p.o. daily. 7. Dilantin 200 mg oral twice a day. 8. Amlodipine/benazepril 1 tab oral daily. 9. Lipitor 20 mg p.o. at bedtime. 10. Depo-Provera 150 mg intramuscular as directed. 11. Januvia 100 mg p.o. daily. 12. Ambien 5 mg oral at bedtime. 13. MiraLAX 17 g oral twice a day. 14. Lorazepam 0.5 mg oral every morning. 15. Linzess 1 capsule oral daily. 16. Melatonin 5 mg oral at bedtime. 17. Remeron half a tablet at bedtime. 18. Seroquel 200 mg oral at bedtime. 19. Geodon 40 mg p.o. twice a day. 20. Flonase 2 sprays inhaled to the nasal passage daily. 21. Prilosec 20 mg p.o. every morning. DISCHARGE DIET: 1800 ADA diet, 1.2 L fluid restriction. ACTIVITY: As tolerated. FOLLOWUP INSTRUCTIONS: The patient will need to follow up with Dr. Mcclain as scheduled by his clinic. The patient will need to follow up with Dr. Heladio Silverman in 1 to 2 weeks. cc: Aniya Rendon MD
== END 2019-06-20 13:56 | disposition home or self-care (01) | DRG 640 ==
LOC: SUPCPDRO → ED 13:45 → SUATTDRO 18:18 → ICU 18:18 → 1N 06-19 15:17
PROVIDERS: ATTEND Internal Medicine

== ENCOUNTER 2019-08-15 02:05 | Inpatient (IN) ==
[2019-08-15] MEDS ORDERED: G.I. COCKTAIL PO ONE (02:27)
[2019-08-15] MEDS ORDERED: TORADOL IV ONE (02:27)
[2019-08-15] MEDS ORDERED: NS 1,000 ML IV ONE ×2 (02:27→06:23)
--- NOTE | 2019-08-15 03:09 | PROVIDER DOCUMENTATION ---
HPI-General Adult - General Chief Complaint: High Blood Sugar Stated Complaint: HIGH BLOOD SUGAR/CANCER PT Time Seen by Provider: 08/15/19 02:07 Source: patient, EMS, other ([employer] employee) Allergies/Adverse Reactions: Patient Allergies Allergy/AdvReac Type Severity Reaction Status Date / Time codeine Allergy HIVES Verified 06/18/19 16:35 Penicillins Allergy RASH Verified 06/18/19 16:35 Home Medications: Home Medication List Medication Instructions Recorded Confirmed Last Taken Type Cetirizine [Zyrtec] 10 mg PO DAILY 11/17/15 08/15/19 06/18/19 History Divalproex Sodium 2 tab PO BID 11/17/15 08/15/19 06/18/19 History Docusate Sodium [Doc-Q-Lace] 100 mg PO BID 11/17/15 08/15/19 06/18/19 History Glipizide [Glipizide Xl] 10 mg PO BID 11/17/15 08/15/19 06/18/19 History Metformin HCl 2 tab PO BID 11/17/15 08/15/19 06/18/19 History Phenytoin Sodium Extended 200 mg PO 0700,1900 01/22/16 08/15/19 06/18/19 History [Dilantin] Amlodipine Besylate/Benazepril 1 each PO DAILY 01/21/18 08/15/19 06/18/19 History [Amlodipine-Benazepril 5-20 mg] Atorvastatin Calcium 20 mg PO DAILY 01/21/18 08/15/19 06/17/19 History Medroxyprogesterone Acetate 150 mg IM DIRECTED 01/21/18 08/15/19 04/15/19 History [Depo-Provera] Sitagliptin Phosphate [Januvia] 100 mg PO DAILY 01/21/18 08/15/19 06/18/19 History Zolpidem [Ambien] 5 mg PO QHS 05/08/18 08/15/19 06/17/19 History Lorazepam 0.5 mg PO QAM 60 Days #60 tab 05/11/18 08/15/19 06/18/19 Rx Polyethylene Glycol 3350 [Miralax] 17 gm PO BID 30 Days #1 powder, 05/11/18 1 10/16/18 06/18/19 Rx packet Fluticasone 50 Mcg Nasal [place] 2 spr INH DAILY 06/18/19 08/15/19 06/18/19 History [Flonase] Linaclotide [Linzess] 1 cap PO DAILY 06/18/19 08/15/19 06/18/19 History Melatonin 1 cap PO QHS 06/18/19 08/15/19 06/17/19 History Mirtazapine [Remeron] 0.5 tab PO QHS 06/18/19 08/15/19 06/17/19 History Multivitamin [Multivitamins] 1 tab PO DAILY 06/18/19 08/15/19 06/18/19 History Omeprazole [Prilosec] 1 cap PO QAM 06/18/19 08/15/19 06/18/19 History Quetiapine [Seroquel] 1 tab PO QHS 06/18/19 08/15/19 06/17/19 History Ziprasidone [Geodon] 1 cap PO BID 06/18/19 08/15/19 06/18/19 History Nitrofurantoin [place]/Macrocryst 100 mg PO BID #10 cap 06/20/19 08/15/19 Unknown Rx [Macrobid] - History of Present Illness -Gen Adult Nature of Presenting Problems: Pt presents with generalized weakness, x 2-3 days, cough, pt had recent procedure on her abdomen, alf employee didn't have further details, pt reports some abdominal pain, pt denies f/c, michelle, cp, sob, cough, n/v/d. Pt is lying in bed in no acute distress. Location of Pain/Injury: reports: abdomen Pain Radiation: reports: no radiation Quality of Pain: reports: cramping Severity: reports: mild Onset/Duration: reports: 3 days ago Timing: reports: still present Context/Activities at Onset: reports: none Modifying Factors: improves with: nothing Associated Symptoms: reports: weakness Similar Symptoms Previously?: No Recently seen or treated by another doctor?: No Review of Systems - Adult - REVIEW OF SYSTEMS - ADULT Constitutional: reports: see HPI Eyes: reports: no symptoms reported Ears, Nose, Mouth & Throat: reports: no symptoms reported Cardiovascular: reports: no symptoms reported Respiratory: reports: no symptoms reported Gastrointestinal: reports: see HPI Genitourinary: reports: no symptoms reported Musculoskeletal: reports: no symptoms reported Integumentary: reports: no symptoms reported Neurological: reports: no symptoms reported Psychiatric: reports: no symptoms reported Endocrine: reports: no symptoms reported Hematologic/Lymphatic: reports: no symptoms reported Allergic/Immunologic: reports: no symptoms reported All Other Systems: Reviewed and Negative Past History - Adult - PAST MEDICAL HISTORY-ADULT Review of Records: reports: Old Records Reviewed, Nursing Assessment Review, Medications Reviewed, Social history reviewed & non-contributory. Major Childhood Illnesses: reports: denies history Cardiovascular: reports: HTN Respiratory: reports: denies history Gastrointestinal: reports: cancer (stage 3 colon) Genitourinary: reports: denies history Musculoskeletal: reports: denies history Neurological: reports: cognitive dysfunction (MR), Seizures/Epilepsy Endocrine/Immune: reports: Diabetes Other Conditions: reports: denies history - PRIOR SURGERIES/PROCEDURES Surgical/Procedure History: reports: cholecystectomy - IMMUNIZATION STATUS Childhood Immunizations: See Nurse Assessment Flu Vaccine: See Nurse Assessment - FAMILY HISTORY Family History: reviewed, not pertinent Physical Exam-General - PHYSICAL EXAM-ADULT Initial Vital Signs Reviewed: Yes - CONSTITUTIONAL General Appearance: appears well - EYES Eyes: PERRL/EOMI - HEAD, EARS, NOSE, MOUTH & THROAT HENMT: normocephalic/atraumatic - NECK Neck: normal inspection - RESPIRATORY Respiratory: lungs clear, no respiratory distress, no accessory muscle use - CARDIOVASCULAR Cardiovascular: regular rate, rhythm - GASTROINTESTINAL (ABDOMEN) Abdominal Exam: normal bowel sounds, non tender, soft - LYMPHATIC Lymphatic: no adenopathy - MUSCULOSKELETAL Back Exam: normal inspection Extremity: normal range of motion - SKIN Integumentary: normal color - NEUROLOGIC Neurologic: grossly normal - PSYCHIATRIC Psych/Mental Status: normal mood/affect Progress - PLAN OF CARE/RESULTS Progress/Plan/Lab Results: Vital Signs - 8 hr 08/15/19 02:13 Temperature 98.3 F Pulse Rate 97 H Respiratory Rate 18 Blood Pressure 114/77 O2 Sat by Pulse Oximetry 97 Laboratory Results - last 24 hr 08/15/19 02:17 POC Glucose 244 H Orders Category Date Time Status CHEST-1 VIEW [RAD] Stat Exams 08/15/19 02:27 Taken BLOOD CULTURE [BLDCUL] Stat Lab 08/15/19 02:27 Uncollected CBC WITH ELECTRONIC DIFF [HEME] Stat Lab 08/15/19 02:26 Uncollected COMPREHENSIVE METABOLIC PANEL [CHEM] Stat Lab 08/15/19 02:27 Uncollected LACTATE, PLASMA [CHEM] Stat Lab 08/15/19 02:27 Uncollected LIPASE [CHEM] Stat Lab 08/15/19 02:27 Uncollected URINALYSIS [URINALYSIS] Stat Lab 08/15/19 02:27 Uncollected URINE CULTURE [RM] Stat Lab 08/15/19 02:27 Uncollected 0.9% Sodium Chloride Inj [Ns] 1,000 ml Med 08/15/19 02:27 Active IV 999 mls/hr Ketorolac [Toradol] Med 08/15/19 02:27 Discontinued 30 mg IV NOW ONE Lido/Ramirez Alk/Al&mg Hydrox [G.i. Cocktail] Med 08/15/19 02:27 Discontinued 30 ml PO NOW ONE Result Diagrams: 08/15/19 03:35 08/15/19 03:35 Departure - Departure Date of Disposition Decision: 08/15/19 Time of Disposition Decision: 05:23 DIAGNOSIS: Hyponatremia Disposition: ADMITTED INPATIENT 09 Certified Medical Emergency: Emergent Condition: Stable Referrals and Follow-Ups: Jean Pierre Hall [Primary Care Provider] - - Critical Care Note This patient required my direct & personal management of CC.: No Attestation - Physician/ IVETTE Attestation Patient care was provided by Advanced Practice Provider:: No The physician spent face to face time with patient:: Yes Advanced Practice Provider documentation review:: Supervising physician onsite and consulted in the evaluation and care of this patient. The physician did have a face to face encounter with the patient.
[2019-08-15 03:50] LABS: BASO# 0.01 X1000 (0.0-0.2); BASO% 0.1 % (0.0-0.8); EOS# 0.16 X1000 (0.0-0.7); EOS% 1.9 % (0.0-10.0); HEMATOCRIT 33.1 % (37.0-47.0); HEMOGLOBIN 11.6 g/dL (12.0-16.0); IMM GRAN# 0.05 X1000 (0.0-0.04); IMM GRAN% 0.6 % (0.0-0.5); LYMPH# 0.49 X1000 (1.2-3.4); LYMPH% 5.8 % (20.5-51.1); MCH 31.8 PG (27-31); MCV 90.7 FL (81-99); MONO% 15.4 % (1.7-9.3); MPV 8.7 FL (7.4-10.4); NEUT# 6.44 X1000 (1.4-6.5); NEUT% 76.2 % (42.2-75.2); PLT 353 X1000 (130-400); RBC 3.65 XMIL (4.2-5.4); RDW 12.2 % (11.5-14.5); WBC 8.45 X1000 (4.8-10.8)
[2019-08-15 04:12] LABS: URINE SOURCE CLEAN CATCH
[2019-08-15 04:18] LABS: BILIRUBIN URINE NEGATIVE (NEGATIVE); BLOOD URINE TRACE (NEGATIVE); COLOR YELLOW; GLUCOSE URINE >1000 mg/dL (NEGATIVE); KETONE URINE 40 mg/dL (NEGATIVE); LEUKOCYTES URINE SMALL (NEGATIVE); NITRITE URINE NEGATIVE (NEGATIVE); PH URINE 6.5; PROTEIN URINE 70 mg/dL (NEGATIVE); SP GRAVITY URINE 1.017; TURBIDITY URINE CLEAR (CLEAR); UROBILINOGEN URINE NORMAL (NORMAL)
[2019-08-15 04:20] LABS: UR EPITHELIAL CELLS <10 /HPF (<10); URINE BACTERIA NEGATIVE /HPF; URINE RBC <10 /HPF (<10)
[2019-08-15 04:39] LABS: AGAP 17; ALB/GLOB RATIO 1.2; ALBUMIN 3.3 g/dL (3.5-5.0); ALKALINE PHOSPHATASE 192 U/L (32-104); BUN 5 mg/dL (8-22); CHLORIDE 79 mmol/L (98-107); COSMO 237; CREATININE 0.3 mg/dL (0.5-0.9); ESTIMATED GFR > 60; GLUCOSE 252 mg/dL (70-104); GOT 31 U/L (10-30); GPT 17 U/L (10-36); LIPASE 27 U/L (13-60); POTASSIUM 4.7 mmol/L (3.5-5.1); TCO2 18 mmol/L (25-35); TOTAL BILIRUBIN 0.33 mg/dL (0.20-1.00); TOTAL PROTEIN 6.1 g/dL (6.3-8.3)
[2019-08-15 05:14] LABS: CALCIUM 8.6 mg/dL (8.8-10.2)
[2019-08-15 05:15] LABS: SODIUM 117 mmol/L (136-145)
[2019-08-15] MEDS ORDERED: ATIVAN IV ONE (06:09)
--- NOTE | 2019-08-15 06:25 | Diag Imaging Result Doc PS360 ---
CHEST-1 VIEW - 08/15/2019 INDICATION: cough, weakness COMPARISON: 06/18/2019 FINDINGS: Lung volumes are severely low. The lungs are clear. Heart size is normal. No pneumothorax or pleural effusion. IMPRESSION: Negative exam. Electronically signed by Luis Sanderson 08/15/2019 6:22 AM
[2019-08-15 06:42] LABS: ALLEN TEST YES; BE -2.9 mmoll (-3.0-3.0); BLOOD TYPE ARTERIAL; HCO3-(ACT) 22.7 mmoll (20.0-26.0); METHB 0.8 % (0.0-1.5); MODALITY CANNULA; O2(CT) 14.7 mL/dL (15.0-23.0); O2HB 97.1 % (95.0-99.0); PCO2(98.6) 29 mmHg (35-45); PO2(98.6) 112 mmHg (60-100); SAMPLE BLOOD; SAO2 99.8 % (95.0-100.0); THB 10.6 g/dL (11.5-17.4); pH(98.6) 7.45 (7.35-7.45)
[2019-08-15] MEDS: HUMALOG SUBQ SCH ×4 (07:00→21:45)
[2019-08-15 08:06] LABS: HEMOGLOBIN A1C 6.9 % (4.8-6.0)
[2019-08-15] MEDS: ROCEPHIN 1 GM in NS 50 ML IV SCH (08:08)
[2019-08-15] MEDS: DILANTIN PO SCH ×2 (08:08→19:02)
--- NOTE | 2019-08-15 08:26 | HISTORY AND PHYSICAL ---
CHIEF COMPLAINT: High blood sugar. HISTORY OF PRESENT ILLNESS: This is an unfortunate 44-year-old female who comes in from a custodial with her custodial employee. There was no a lot of information that was available at the time of admission. She had had generalized weakness for a couple of days, cough. The patient had a recent procedure at [facility] to prepare for radiation. She has a colon cancer with now apparent metastasis to her liver. The patient apparently had no complaint of nausea, vomiting, and diarrhea. She is nonverbal at this time. She does reflect to stimulus and does track you around the room. She was mildly agitated and given some Ativan in the emergency room. She apparently kept trying to get out of the bed, however she was calm during my interview. She also has a history of diabetes type 2, cognitive dysfunction, from what I understand she can normally read and communicate well, also has epilepsy and hypertension, and history of pulmonary embolism, with frequent urinary tract infection, and a history of hyponatremia. Laboratory data was tested in the emergency room and she was noted to have hyponatremia. Her original sodium was 117. She has been very diaphoretic. She was given fluids in the emergency room. She will continued on normal saline and monitored on PVC. PAST MEDICAL HISTORY: See HPI. PREVIOUS SURGICAL HISTORY: Cholecystectomy, descending colectomy. SOCIAL HISTORY: No tobacco, alcohol, or illicit drug use. Lives at a custodial, has a custodial sitter at the bedside with her. FAMILY HISTORY: This is unknown. ALLERGIES: To codeine, penicillin. HOME MEDICATIONS: Flonase, glipizide 10 mg p.o. b.i.d., Depo-Provera 150 mg IM as directed, metformin 1000 mg p.o. b.i.d., Januvia 100 mg p.o. daily, amlodipine benazepril combo 5/20 mg 1 p.o. daily, atorvastatin 20 mg p.o. daily, Zyrtec 10 mg p.o. daily, divalproex sodium 500 mg 2 tablets p.o. b.i.d., docusate sodium 100 mg p.o. b.i.d., Linzess 1 capsule p.o. daily, lorazepam 0.5 mg p.o. daily, Melatonin 5 mg p.o. at bedtime, mirtazapine 7.5 mg p.o. at bedtime, multivitamin 1 daily, Macrobid 100 mg p.o. b.i.d., omeprazole 20 mg p.o. daily, Dilantin 200 mg p.o. at 7 and 1900, MiraLAX 17 g p.o. daily, Seroquel 200 mg p.o. at bedtime, Geodon 40 mg p.o. b.i.d., Ambien 5 mg p.o. at bedtime. REVIEW OF SYSTEMS: This could not be obtained related to patient's mentation. PHYSICAL EXAMINATION: VITAL SIGNS: Temperature 98.3, pulse 108, respirations 18, blood pressure 160/49, oxygen saturation 94% on room air. GENERAL: Unfortunate 44-year-old female lying in the ER stretcher. She was apparently somewhat anxious and agitated, trying to get out of the bed, she received Ativan. She is resting comfortably, is nonverbal at this time. HEENT: Head is atraumatic, normocephalic. Pupils equal, round and reactive to light. Extraocular eye movements intact. Sclera is anicteric. Conjunctiva is dry. NECK: Supple. No JVD. No thyromegaly. Trachea is midline. No cervical lymphadenopathy. CARDIAC: S1, S2 appreciated, tachycardic. No murmurs, gallops, rubs. LUNGS: Clear to auscultation bilaterally. Decreased airway entry bilaterally. No rhonchi, wheezes, rales. Symmetric rise and fall of respirations. ABDOMEN: Soft, nondistended, nontender. Bowel sounds present in all 4 quadrants. EXTREMITIES: No clubbing, cyanosis, or edema, 2+ pedal pulses bilaterally. NEUROLOGICAL: She is awake and alert. She is nonverbal at this time. SKIN: Warm, diaphoretic, otherwise clean, dry, and intact. DIAGNOSTIC DATA: Chest x-ray: Low lung volumes. LABORATORY DATA: WBC 8.45, hemoglobin 11.6, hematocrit 33.1, platelet count 353. Sodium 117, potassium 4.7, chloride 79, carbon dioxide 18, BUN 5, creatinine 0.3, glucose 252. Urine greater than 1000 glucose, 40 ketones, leukocyte esterase positive, 10-20 WBCs. ASSESSMENT AND PLAN: 1. Hyponatremia. This is probably related to multiple antipsychotic medications as well as the patient's colon cancer with metastasis to the liver. She has been noted to be diaphoretic. I do not believe her intake has been normal. She was given a liter of normal saline in the emergency room. Normal saline will be continued. Will check a basic metabolic panel q.6 hours. 2. Fluid volume depletion. 3. Questionable urinary tract infection. 4. Diabetes mellitus type 2 with hyperglycemia. 5. Epilepsy. PLAN: As noted above, will rehydrate patient, q.4 hour blood sugars. I believe the patient is followed by Dr. Mcclain, will consult him. Will reassess laboratory data every 6 hours. Continue her home medications. The patient also has a questionable urinary tract infection. She is known to have chronic urinary tract infections. Will place on Rocephin at this time. Continue to follow patient. Further recommendations per patient's clinical course. Dictated by NISHI Arce for Wander Mathis MD I have performed a face to face diagnostic evaluation. Labs/xrays- reviewed. Exam- Chest- rhonchi, CV- regular. A/P- Hyponatremia- Admit, IV fluids, Monitor electrolytes. Dr. Mathis cc: NISHI Arce MD [facility]
[2019-08-15] MEDS ORDERED: LIPITOR PO SCH (09:00)
[2019-08-15] MEDS ORDERED: MACROBID PO SCH (09:00)
[2019-08-15] MEDS ORDERED: MIRALAX PO SCH (09:00)
[2019-08-15] MEDS ORDERED: COLACE PO SCH (09:00)
[2019-08-15] MEDS ORDERED: LINZESS PO SCH (09:00)
[2019-08-15] MEDS ORDERED: THERA M PLUS PO SCH (09:00)
[2019-08-15] MEDS ORDERED: ZYRTEC PO SCH (09:00)
[2019-08-15] MEDS: GEODON PO SCH ×2 (10:18→21:43)
[2019-08-15] MEDS: LIPITOR PO SCH (10:18)
[2019-08-15] MEDS: LOTREL 5/20 MG PO SCH (10:18)
[2019-08-15] MEDS: ATIVAN PO SCH (10:19)
[2019-08-15] MEDS: DEPAKOTE PO SCH ×2 (10:19→21:43)
[2019-08-15] MEDS: PRILOSEC PO SCH (10:19)
[2019-08-15] MEDS ORDERED: TYLENOL PO PRN (10:58)
[2019-08-15] MEDS ORDERED: ZOFRAN IV PRN (10:58)
[2019-08-15] MEDS ORDERED: HALDOL IV PRN ×2 (12:59→16:28)
[2019-08-15] MEDS ORDERED: LASIX IV ONE ×2 (13:51→22:00)
--- NOTE | 2019-08-15 13:59 | EKG Report ---
Test Performed on : 08/15/2019 1:47:15 PM Test Reason : QTc monitorin. Maria E burton MD if QTc >500.Thanks Blood Pressure : / mmHG Vent. Rate : 089 BPM Atrial Rate : 089 BPM P-R Int : 168 ms QRS Dur : 098 ms QT Int : 354 ms P-R-T Axes : 046 003 012 degrees QTc Int : 430 ms Normal sinus rhythm. Normal ECG When compared with ECG of 18-JUN-2019 16:56, (Unconfirmed) No significant change was found Confirmed by Campbell BEARD, Quintin ([id number]) on 08/18/2019 8:23:36 AM
--- NOTE | 2019-08-15 14:45 | HEMO/ONC CONSULTATION ---
DATE: 08/15/2019 REASON FOR CONSULTATION: This is a known patient of ours for the treatment of metastatic colon cancer. HISTORY OF PRESENT ILLNESS: According to the patient's support group manager, she states that Radha has not been feeling well for the last 2 days. She noticed that she has had a decrease in her appetite and eating, that she has been weaker than normal and more fatigued. The patient became more and more agitated over the evening and was brought to the ER approximately at 2 a.m. this morning for increased confusion and lack of appropriate response. Radha is a 44-year-old mentally challenged patient of ours for whom we treat for metastatic colon cancer to the liver. She status post colon resection on 02/19/2018, and she had a SIR-Spheres procedure done on 09/23/2018. On her most latest CT scan on 06/27/2019 it showed that the size of her liver metastasis was increasing. Radha has also been having an increase in burning urination, UTI type symptoms, lower abdominal pain, and often complaining of frequency of urination and dysuria. At her last office visit, Dr. Mcclain chose to send her PET scan and recent CT scan to Interventional Radiology where she had her SIR-Spheres placed for their opinion. It is apparent that they did follow up there. It is explained to us that the patient had radiation markings done this past Sunday and that she is due to begin radiation next Sunday. She is following up with Dr. Wayne Ochoa. PAST MEDICAL HISTORY: 1. Colon cancer with colectomy. 2. Seizure disorder. 3. Mental retardation. 4. Diabetes mellitus type 2. 5. History of pulmonary emboli. 6. Anxiety. 7. Frequent urinary tract infections. 8. History of hyponatremia. 9. History of diarrhea secondary to colon resection. PAST SURGICAL HISTORY: 1. Cholecystectomy. 2. Descending colectomy. SOCIAL HISTORY: The patient resides in a prison. She does not smoke, drink, or use any other illicit drugs. ALLERGIES: Codeine and penicillin. HOME MEDICATIONS: Ambien, melatonin, Remeron, Seroquel, amlodipine/benazepril, atorvastatin, calcium, Depo-Provera, Dilantin, Depakote, docusate sodium, Flonase, Geodon, glipizide, Januvia, Lexapro, Linzess, metformin, multivitamins, Prilosec, Zyrtec, Ativan, and MiraLAX. REVIEW OF SYSTEMS: This cannot be obtained due to the patient's mentation. She is nonverbal at the time of our encounter. PHYSICAL EXAMINATION: Vital Signs: Temperature 98 degrees, pulse rate 99, respiratory rate 20, blood pressure 137/75, and O2 saturation 100% on nasal cannula at 3 liters. She is not appear to be in any pain. General: The patient is awake, but not responding appropriately. She is not conversing. She does not appear to be in any acute distress. HEENT: PERRLA. Sclerae is anicteric. Oral mucosa is dry. Cardiovascular: Normal S1, S2. No murmurs, gallops, or rubs. Regular rate and rhythm. Lungs: Clear to auscultation. Normal respiratory effort. Gastrointestinal: The abdomen is soft, nondistended, nontender to palpation. Bowel sounds are hypoactive. Extremities: No edema noted. Neurological: She is awake to voice and touch, but she does not respond appropriately. She does not follow around the room. She does not answer questions appropriately. Skin: No ecchymosis or petechiae or rashes noted. Clean, warm, dry, and intact. LABORATORY DATA: WBCs 8.45, hemoglobin 11.6, hematocrit 33.1, platelet count 353,000. Sodium 116, potassium 4.7, creatinine 0.3, glucose 252, calcium 8.6, alkaline phosphatase 192. RADIOLOGY: Chest x-ray, lung volumes are severely low, otherwise negative exam. ASSESSMENT AND PLAN: 1. Hyponatremia. Per medical management. 2. Urinary tract infections/genitourinary pain. Refer the patient to gynecology for further assessment. The patient has been complaining of lower abdominal and perineal pain with urinary frequency for quite some time. She is known to have chronic urinary tract infections. 3. Type 2 diabetes with hyperglycemia, managed per medical management. 4. Epilepsy. Continue appropriate medications. 5. Colon cancer with liver metastasis. The patient is currently being treated by Dr. Wayne Ochoa from interventional radiology with Y-90 at [facility]. We believe she had CT markings done on Sunday, and she is due to begin Sunday with their facility. She is not a candidate for chemotherapy. Mother wanted her to receive Y-90 treatment to control her liver disease. Dictated by NISHI Michel for Kevon Mcclain MD cc: Kevon Mcclain MD [facility]
[2019-08-15 18:22] LABS: AGAP 16; BUN 4 mg/dL (8-22); CALCIUM 8.9 mg/dL (8.8-10.2); CHLORIDE 83 mmol/L (98-107); COSMO 236; CREATININE 0.3 mg/dL (0.5-0.9); ESTIMATED GFR > 60; GLUCOSE 146 mg/dL (70-104); TCO2 18 mmol/L (25-35)
[2019-08-15 18:24] LABS: SODIUM 117 mmol/L (136-145)
[2019-08-15] MEDS: ATIVAN IV PRN (19:01)
--- NOTE | 2019-08-15 19:58 | ECHO REPORT ---
ORDER DATE: 08/15/2019 INDICATION: This is a 44-year-old female with diabetes and edema. M-MODE MEASUREMENTS: Left ventricle end diastole: 3.6. Left ventricle end systole: 2.7. Posterior wall: 0.9. Interventricular septum: 0.9. Left atrium: 2.8. Aortic diameter: 3.3. SUMMARY OF 2-DIMENSIONAL IMAGIN. Left ventricular function is normal. Ejection fraction is 62%. There is no wall motion abnormality. 2. The right ventricle is normal. 3. The aortic valve looks normal. It has 3 cusps. Color flow mapping unremarkable. 4. Pulsed wave Doppler of mitral inflow is normal. 5. Tissue Doppler of septal and lateral mitral annulus averages 9 cm. There is no diastolic dysfunction. 6. The tricuspid valve is unremarkable. Pulmonary pressure appears to be normal. 7. There is no dilatation of the chambers. 8. There is no evidence of any significant degree of pericardial effusion. Clinical correlation recommended. cc: MD Joselito Mir MD
[2019-08-15] MEDS ORDERED: SEROQUEL PO SCH (21:00)
[2019-08-15] MEDS ORDERED: REMERON PO SCH (21:00)
--- NOTE | 2019-08-15 21:37 | PROGRESS NOTE ---
DATE: 08/15/2019 INTERVAL HISTORY: Ms. Wick was admitted for altered mental status, recurrent falls. The history is limited as the patient's mother is not able to provide a lot of history; however, she was able to tell me that the patient has had multiple falls recently and was not acting herself, so she was brought to the emergency room. Overnight she was started on intravenous fluids for the treatment of hyponatremia. OBJECTIVE: Currently the patient is alert, but intermittently confused. She follows most questions appropriately, but she is a little slow to respond. She is following simple commands, though. Vital signs: Temperature 98 degrees, pulse 93, respiratory rate 20, blood pressure 130/75, saturating 100% on 2 L nasal cannula. On physical examination she is not in acute distress. She just ate chocolate pudding. Air entry bilaterally equal. No wheeze or rhonchi. Mild inspiratory crackles, infrascapular region. S1, S2 normal. No murmur or gallop. Abdomen is obese, soft, nontender. Active bowel sounds. She has lower extremity edema. She is alert but intermittently confused. According to mother, the patient appears to be a little edematous. Input and output: She has 700 mL so far. She is also intermittently agitated. Considering that, she may not be a good candidate for urine catheter. LABORATORY DATA: Labs suggestive of hyponatremia, hypochloremia, normal kidney function, hyperglycemia, elevated alkaline phosphatase. No positive microbiological data. DIAGNOSTIC DATA: CT scan head is pending. ASSESSMENT AND PLAN: 1. Hyponatremia. The patient clinically appears edematous at the moment. I will get echocardiogram. Stop intravenous fluids. Give her a dose of Lasix. Follow up serial sodium level. She was also listed to be taking mirtazapine and other medications for agitation, including antipsychotic medication which could potentially contribute to hyponatremia. I am holding her medications and follow up with serial sodium level. She is intermittently agitated, requiring intravenous medications, so she may not be an ideal candidate for urine catheter. My concern is she may pull it out, which may cause more trouble, so I will avoid it. 2. History of metastatic colon cancer with liver metastasis. She was deemed not an ideal candidate for chemotherapy by Oncology team. She did receive hepatic artery embolization procedure through right groin a week prior to presentation. Oncology on board. I will consult Palliative Care team. 3. History of developmental delay and epilepsy, and intermittent episodes of agitation. She is listed to be taking a lot of medication, and I will resume her home medication as tolerated. 4. Disposition: Continue to monitor the patient in PVC. Plan of care discussed with the patient's mother at bedside. Her questions and concerns were addressed. Overall, Ms. Wick's prognosis is poor. cc: Joselito Maki MD
--- NOTE | 2019-08-15 21:39 | Diag Imaging Result Doc PS360 ---
EXAM: CT HEAD W/O CONTRAST - 08/15/2019 HISTORY: Hyponatremia and encephal. Evaluate for herniation TECHNIQUE: CT head without contrast COMPARISON: 06/18/2019 FINDINGS: The cerebellum appears mildly atrophic similar to prior. There is no evidence of intracranial hemorrhage, mass effect, midline shift, or hydrocephalus. There is no evidence of basilar cistern effacement. There is no evidence of infarct, although acute infarcts may not be immediately visible. There is no evidence of skull fracture. IMPRESSION: No visible acute intracranial abnormality. No indication of herniation. This exam was performed using automated exposure control, adjustment of mA or kV according to patient size, and/or use of iterative reconstruction technique. Electronically signed by Heladio Nolen 08/15/2019 9:37 PM
[2019-08-15] MEDS: MELATONIN PO SCH (21:43)
[2019-08-15] MEDS: AMBIEN PO SCH (21:43)
[2019-08-15 22:51] LABS: AGAP 16; BUN 4 mg/dL (8-22); CALCIUM 8.8 mg/dL (8.8-10.2); CHLORIDE 83 mmol/L (98-107); COSMO 240; CREATININE 0.3 mg/dL (0.5-0.9); ESTIMATED GFR > 60; GLUCOSE 190 mg/dL (70-104); POTASSIUM 3.2 mmol/L (3.5-5.1); TCO2 19 mmol/L (25-35)
[2019-08-15 22:53] LABS: SODIUM 118 mmol/L (136-145)
[2019-08-16] MEDS: ATIVAN IV PRN ×2 (04:50→12:32)
[2019-08-16] MEDS: ROCEPHIN 1 GM in NS 50 ML IV SCH (06:18)
[2019-08-16] MEDS: HUMALOG SUBQ SCH ×5 (06:19→20:30)
[2019-08-16] MEDS: DILANTIN PO SCH ×3 (06:20→19:00)
[2019-08-16 06:38] LABS: BASO# 0.01 X1000 (0.0-0.2); BASO% 0.2 % (0.0-0.8); EOS# 0.12 X1000 (0.0-0.7); EOS% 2.4 % (0.0-10.0); HEMATOCRIT 32.3 % (37.0-47.0); HEMOGLOBIN 11.4 g/dL (12.0-16.0); IMM GRAN# 0.03 X1000 (0.0-0.04); IMM GRAN% 0.6 % (0.0-0.5); LYMPH# 0.58 X1000 (1.2-3.4); LYMPH% 11.4 % (20.5-51.1); MCH 32.9 PG (27-31); MCHC 35.3 g/dL (33-37); MCV 93.4 FL (81-99); MONO# 1.01 X1000 (0.11-0.59); MONO% 19.9 % (1.7-9.3); MPV 8.9 FL (7.4-10.4); NEUT# 3.33 X1000 (1.4-6.5); NEUT% 65.5 % (42.2-75.2); PLT 347 X1000 (130-400); RBC 3.46 XMIL (4.2-5.4); RDW 12.6 % (11.5-14.5); WBC 5.08 X1000 (4.8-10.8)
[2019-08-16 07:23] LABS: ESTIMATED GFR > 60
[2019-08-16 07:27] LABS: AGAP 19; BUN 3 mg/dL (8-22); CALCIUM 8.6 mg/dL (8.8-10.2); CHLORIDE 89 mmol/L (98-107); COSMO 260; CREATININE 0.3 mg/dL (0.5-0.9); GLUCOSE 176 mg/dL (70-104); POTASSIUM 3.1 mmol/L (3.5-5.1); SODIUM 129 mmol/L (136-145); TCO2 21 mmol/L (25-35)
--- NOTE | 2019-08-16 08:10 | CONSULTATION ---
DATE OF CONSULTATION: 08/15/2019 REASON FOR CONSULTATION: Request for a Gynecology evaluation made by Dr. Kevon Mcclain regarding pelvic pain. HISTORY: Radha is a 44-year-old female, 0, para 0 who presented to the PVC unit today secondary to the observation of malaise, declining appetite, weakness, fatigue and increased agitation that was observed by the group marketing vp. During this current admission, the patient has been diagnosed with hyponatremia. She has a history of multiple chronic conditions that include the following: Down syndrome, decreased mental capacity, type 2 diabetes mellitus, seizure disorder and the diagnosis of metastatic colon cancer in 2017 of which she underwent a descending colectomy procedure in September of 2018. Subsequently, she had an abdominal CT scan in June 2019 that identified an increase of liver metastasis. She received one dose of radiation treatment and her mother stated that she could not observe if she made any improvements with the radiation treatment. She has decided to allow her to undergo an additional treatment of radiation to determine if Radha will receive some benefit. While in her hospital room, the patient's mother and an acquaintance were present. During this time, Radha made several attempts to get out of bed. However, her mother and acquaintance stopped her from getting out of bed to go to the restroom. However, she was allowed to get out of bed to sit in an adjacent chair. At this time, I asked Radha if I could perform a physical examination in the absence of a pelvic examination and she allowed me to do so. Her mother and I thought that it would not be in her best interests to attempt to perform a pelvic examination in her agitated state. Therefore, I thanked Radha for allowing me to perform a physical examination. GYNECOLOGICAL HISTORY: The patient has a history of pelvic pain that has been observed by Dr. Mcclain over the past few encounters that he has made with her. Radha's mother states that she does not know when she had her past Pap smear but believes that she has had it within the past 1-2 years. OBSTETRICAL HISTORY: Nulligravida. PAST MEDICAL HISTORY: Down syndrome, decreased mentation, metastatic colon cancer, type 2 diabetes mellitus, hyponatremia (recent admission), UTI (current admission), PE, seizure disorder. PAST SURGICAL HISTORY: Descending colectomy, cholecystectomy. SOCIAL HISTORY: The patient does not have a history of tobacco, alcohol or illicit drug use. She is a resident in a penitentiary. ALLERGIES: Penicillin, codeine. FAMILY HISTORY: Radha's father and sister are . MEDICATIONS: 1. Dilantin. 2. Depakote. 3. Lexapro. 4. Antihyperglycemic medications. 5. Remeron. 6. Seroquel. 7. Lipitor. 8. Amlodipine/benazepril. PHYSICAL EXAMINATION: VITAL SIGNS: Temperature 97.9 degrees, heart rate 100 beats per minute, respiratory rate 16 breaths per minute, blood pressure 135/92. GENERAL: The patient is showing agitation and has attempted to get out of bed to go to the restroom several times. HEART: Regular rhythm and rate without murmur. LUNGS: Clear to auscultation bilaterally. ABDOMEN: Soft, obese, palpation tenderness within the suprapubic region. EXTREMITIES: Without cyanosis, clubbing or edema. SKIN: A circular erythematous region approximately 3 cm located along the anterior distal region of the right lower extremity. PELVIC: Deferred. LABORATORY RESULTS: CBC: WBC 8.5, hemoglobin 11.6, hematocrit 33.1, platelet count 353,000. Sodium 117, chloride 83, potassium 4.0, CO2 18, BUN 4, creatinine 0.3, glucose 146. Blood culture x2 pending. Urine culture pending. EKG (August 15, 2019) normal sinus rhythm. ASSESSMENT: 1. Pelvic pain -- etiology unknown. A pelvic exam could not be performed today due to patient's agitated status. A pelvic ultrasound will be performed in an attempt to identify an etiology for her pelvic pain, assessing the pelvic anatomy. 2. Agitation -- She will provided with the necessary management to decrease and/or resolve her agitation. 3. Metastatic colon cancer -- status post colectomy followed by radiation therapy x1. 4. UTI -- patient is receiving IV ceftriaxone. 5. Type 2 diabetes mellitus -- patient is currently receiving insulin for the management of her hyperglycemia. 6. Hyponatremia -- patient is being managed to increase her sodium level. 7. Seizure disorder -- on Dilantin. PLAN: 1. A pelvic exam was omitted secondary to the patient's agitated status. 2. A pelvic ultrasound has been ordered to evaluate the patient's pelvic anatomy in attempt to identify an etiology for her pelvic pain. 3. Further interventions will be based on the pelvic ultrasound and the patient's pain status. Thank you for allowing the Gynecology Team to assist with the management of Ms. Wick. Additional recommendations will be made in the near future. Please do not hesitate to contact us if you have any questions.
[2019-08-16] MEDS ORDERED: SODIUM BICARBONATE 8.4% 150 MEQ in D5W 1,000 ML IV SCH (09:15)
[2019-08-16] MEDS: PRILOSEC PO SCH (09:59)
[2019-08-16] MEDS: GEODON PO SCH ×2 (09:59→20:18)
[2019-08-16] MEDS: LOTREL 5/20 MG PO SCH (10:00)
[2019-08-16] MEDS: LIPITOR PO SCH (10:00)
[2019-08-16] MEDS: KLOR-CON PO SCH ×2 (10:00→14:39)
[2019-08-16] MEDS: DEPAKOTE PO SCH ×2 (10:01→20:18)
[2019-08-16] MEDS: ATIVAN PO SCH (10:01)
[2019-08-16] MEDS: POTASSIUM CHLORIDE 20 MEQ/SWI 20 MEQ/100 ML IVPB IV SCH ×2 (10:03→12:33)
--- NOTE | 2019-08-16 10:52 | OB/GYN PROGRESS NOTE ---
Progress Note DICTATING MACHINE TYPIST - . Patient Problems: Current Active Problems Problem Status Onset Hyponatremia Acute DICTATING MACHINE TYPIST Progress Note: Vital Signs - 24 hr 08/15/19 11:06 08/15/19 12:22 08/15/19 15:28 Temperature 98.0 F 97.9 F Pulse Rate 99 H 93 H 105 H Respiratory Rate 20 16 Blood Pressure 137/75 135/82 O2 Sat by Pulse Oximetry 100 100 08/15/19 20:00 08/16/19 00:00 08/16/19 04:00 Temperature 98.1 F 98.3 F 97.6 F Pulse Rate 92 H 82 114 H Respiratory Rate 16 18 18 Blood Pressure 159/67 84/58 125/65 O2 Sat by Pulse Oximetry 100 98 97 08/16/19 08:57 Temperature 98.6 F Pulse Rate 111 H Respiratory Rate 18 Blood Pressure 148/96 O2 Sat by Pulse Oximetry 97 Laboratory Results - last 24 hr 08/15/19 08/15/19 08/15/19 11:55 11:55 12:10 WBC RBC Hgb Hct MCV MCH MCHC RDW Std Deviation Plt Count MPV Immature Gran % (Auto) Neut % (Auto) Lymph % (Auto) [place] % (Auto) Eos % (Auto) Baso % (Auto) Immature Gran # (Auto) Neut # (Auto) Lymph # (Auto) [place] # (Auto) Eos # (Auto) Baso # (Auto) Sodium Potassium Chloride Carbon Dioxide Anion Gap BUN Creatinine Estimated GFR/1.73 m2 BUN/Creatinine Ratio Glucose POC Glucose 197 H Calculated Osmolality Calcium TSH Urine Osmolality 261 L Ur Random Sodium 20 08/15/19 08/15/19 08/15/19 12:20 14:22 15:36 WBC RBC Hgb Hct MCV MCH MCHC RDW Std Deviation Plt Count MPV Immature Gran % (Auto) Neut % (Auto) Lymph % (Auto) [place] % (Auto) Eos % (Auto) Baso % (Auto) Immature Gran # (Auto) Neut # (Auto) Lymph # (Auto) [place] # (Auto) Eos # (Auto) Baso # (Auto) Sodium 116 L* 117 L* Potassium 4.0 Chloride 83 L Carbon Dioxide 18 L Anion Gap 16 BUN 4 L Creatinine 0.3 L Estimated GFR/1.73 m2 > 60 BUN/Creatinine Ratio 13 Glucose 146 H POC Glucose 155 H Calculated Osmolality 236 Calcium 8.9 TSH Urine Osmolality Ur Random Sodium 08/15/19 08/15/19 08/16/19 20:09 22:15 05:30 WBC RBC Hgb Hct MCV MCH MCHC RDW Std Deviation Plt Count MPV Immature Gran % (Auto) Neut % (Auto) Lymph % (Auto) [place] % (Auto) Eos % (Auto) Baso % (Auto) Immature Gran # (Auto) Neut # (Auto) Lymph # (Auto) [place] # (Auto) Eos # (Auto) Baso # (Auto) Sodium 118 L* Potassium 3.2 L D Chloride 83 L Carbon Dioxide 19 L Anion Gap 16 BUN 4 L Creatinine 0.3 L Estimated GFR/1.73 m2 > 60 BUN/Creatinine Ratio 13 Glucose 190 H POC Glucose 212 H Calculated Osmolality 240 Calcium 8.8 TSH 3.52 Urine Osmolality Ur Random Sodium 08/16/19 08/16/19 08/16/19 05:30 05:30 05:37 WBC 5.08 RBC 3.46 L Hgb 11.4 L Hct 32.3 L MCV 93.4 MCH 32.9 H MCHC 35.3 RDW Std Deviation 12.6 Plt Count 347 MPV 8.9 Immature Gran % (Auto) 0.6 H Neut % (Auto) 65.5 Lymph % (Auto) 11.4 L [place] % (Auto) 19.9 H Eos % (Auto) 2.4 Baso % (Auto) 0.2 Immature Gran # (Auto) 0.03 Neut # (Auto) 3.33 Lymph # (Auto) 0.58 L [place] # (Auto) 1.01 H Eos # (Auto) 0.12 Baso # (Auto) 0.01 Sodium 129 L Potassium 3.1 L Chloride 89 L Carbon Dioxide 21 L Anion Gap 19 BUN 3 L Creatinine 0.3 L Estimated GFR/1.73 m2 > 60 BUN/Creatinine Ratio 10 Glucose 176 H POC Glucose 174 H Calculated Osmolality 260 Calcium 8.6 L TSH Urine Osmolality Ur Random Sodium S. Patient resting in bed with her mother in the room. She is sedated and about to leave for the US. Patient c/o soreness of the lower pelvis. O. General: Awake but drowsy Chest: CTAB Heart: RRR Abdomen: Soft, nontender. : Pelvic exam deferred. A/P 44yo G0 with colon cancer and pelvic pain. Awaiting pelvic US.
[2019-08-16] MEDS ORDERED: D5W 1,000 ML IV SCH (11:15)
--- NOTE | 2019-08-16 11:18 | Diag Imaging Result Doc PS360 ---
EXAM: US PELVIC NON-OB COMPLETE HISTORY: Pelvic pain TECHNIQUE: Pelvic ultrasound COMPARISON: None. FINDINGS: The uterus is small measuring only 4.2 x 3.9 x 3.4 cm. Poor detail. No uterine abnormality identified. Neither ovary is seen. No free fluid. IMPRESSION: Negative exam Electronically signed by Jun De La O 08/16/2019 11:16 AM
[2019-08-16 11:47] LABS: AGAP 16; BUN 3 mg/dL (8-22); CALCIUM 8.8 mg/dL (8.8-10.2); CHLORIDE 85 mmol/L (98-107); COSMO 247; CREATININE 0.3 mg/dL (0.5-0.9); ESTIMATED GFR > 60; GLUCOSE 208 mg/dL (70-104); POTASSIUM 3.8 mmol/L (3.5-5.1); SODIUM 121 mmol/L (136-145); TCO2 20 mmol/L (25-35)
[2019-08-16] MEDS ORDERED: LASIX IV ONE (13:50)
[2019-08-16 17:35] LABS: AGAP 13; BUN 2 mg/dL (8-22); CALCIUM 8.8 mg/dL (8.8-10.2); CHLORIDE 92 mmol/L (98-107); COSMO 265; CREATININE 0.3 mg/dL (0.5-0.9); ESTIMATED GFR > 60; GLUCOSE 270 mg/dL (70-104); POTASSIUM 4.4 mmol/L (3.5-5.1); SODIUM 129 mmol/L (136-145); TCO2 24 mmol/L (25-35)
[2019-08-16] MEDS: MELATONIN PO SCH (20:18)
[2019-08-16] MEDS: AMBIEN PO SCH (20:18)
--- NOTE | 2019-08-16 20:57 | PROGRESS NOTE ---
DATE: 08/16/2019 INTERVAL HISTORY: Patient received intravenous Lasix and had about 5 L of urine output and her sodium had increased to 129, considering it was over correction. She has been started on bicarbonate drip. SUBJECTIVE: She appears a little more alert today than yesterday as per the mother at bedside. She is trying to come out of bed. She states she wanted to make urine. Otherwise, not in acute distress. She denies any chest pain or shortness of breath. VITALS: Temperature of 98.6 degrees, pulse is 111, respiratory rate 18, blood pressure 148/96. She is saturating 97% on room air. PHYSICAL EXAMINATION: Not in any acute distress. Oral cavity is moist.Lungs: Air entry bilaterally equal. No wheeze, rhonchi, crackles. Cardiovascular: S1, S2 normal. No murmur or gallop. Abdomen: Soft, nontender. She has urine catheter. Her lower extremity edema has improved. She is alert. She is answering and following commands appropriately. Mother is at bedside. LABS: Suggestive of normocytic anemia, normal platelet count. Her sodium improved from 118 to 129, potassium is 3.1. Her chloride is 89, normal kidney function. MICROBIOLOGY: Blood cultures are in lab. IMAGING: Echocardiogram performed yesterday had ejection fraction of 62% with normal wall motion without any significant abnormalities. Head CT had mildly atrophic cerebellum similar to prior without evidence of intracranial hemorrhage, mass effect or hydrocephalus and without any acute infarct. Electrocardiogram performed yesterday had normal QTc. ASSESSMENT AND PLAN: 1. Hyponatremia. Considering low urine sodium and osmolality, it could be related to increased free water intake as evidenced from the history with intravenous diuresis is improved. I am holding on further diuretics and will give her general free water and will recheck her sodium in 6 hours to avoid overcorrection with a goal of 6 to 8 mEq of sodium correction over 24 hours. Her acute encephalopathy is likely because of hyponatremia. CT scan head was largely unremarkable. I have also held her mirtazapine and Seroquel. 2. History of metastatic colon cancer with liver metastasis, not a candidate for chemotherapy. She did receive hepatic artery embolization and future plans were to perform another embolization. The palliative team on board. 3. History of development delay, epilepsy, intermittent episodes of agitation. Continue her home zolpidem, divalproex, lorazepam, phenytoin, and ziprasidone. 4. Others: I will continue her home melatonin, antihypertensive medication including amlodipine, benazepril, and atorvastatin. DISPOSITION: I will continue to monitor patient inside the hospital. Plan of care discussed with the patient's mother. All of her questions have been answered. cc: Joselito Maki MD
--- NOTE | 2019-08-16 21:40 | PROGRESS NOTE ---
DATE: 08/16/2019 ADDENDUM: I had an extensive discussion about Ms. Wick's clinical condition with her mother. I informed her that Ms. Wick has metastatic colon cancer and she most likely would succumb to her cancer or complications related to it rather than anything else. I explained to her that she probably did not have prognosis in terms of years, but it was likely in terms of months. I explained to her that with metastatic colon cancer, she could develop decreased immunity, decreased appetite, weight loss, and would be at risk of repeated hospital admissions, infections including pneumonia, urine infection, electrolyte abnormality and abnormal liver function tests. I explained to her that though her current metabolic problems could be corrected, it may not address her underlying metastatic cancer and poor prognosis related to that. I asked her mother what she would want if she had to make a decision on behalf of Ms. Wick, if her cardiac or respiratory status would worsen. I asked her what she would have wanted if she went into cardiorespiratory arrest. Ms. Wick's mother expressed that she would not want any chest compressions, shock, intubation or ventilator support, and she would let her go peacefully if we would encounter that situation. She was tearful during this conversation. I will change her code status to Do Not Resuscitate/Allow Natural level 1. Palliative Care team is also on board with ongoing further goals of care discussion. cc: Joselito Maki MD
[2019-08-17 00:28] LABS: AGAP 12; BUN 3 mg/dL (8-22); CALCIUM 8.7 mg/dL (8.8-10.2); CHLORIDE 95 mmol/L (98-107); COSMO 257; CREATININE 0.3 mg/dL (0.5-0.9); ESTIMATED GFR > 60; GLUCOSE 166 mg/dL (70-104); POTASSIUM 5.3 mmol/L (3.5-5.1); SODIUM 128 mmol/L (136-145); TCO2 21 mmol/L (25-35)
[2019-08-17] MEDS: ATIVAN IV PRN (03:32)
[2019-08-17] MEDS: ROCEPHIN 1 GM in NS 50 ML IV SCH (06:46)
[2019-08-17] MEDS: DILANTIN PO SCH ×2 (06:47→18:14)
[2019-08-17] MEDS: HUMALOG SUBQ SCH ×4 (06:47→20:52)
[2019-08-17] MEDS: LIPITOR PO SCH (08:13)
[2019-08-17] MEDS: GEODON PO SCH ×2 (08:13→20:52)
[2019-08-17] MEDS: ATIVAN PO SCH (08:13)
[2019-08-17] MEDS: DEPAKOTE PO SCH ×2 (08:13→20:51)
[2019-08-17] MEDS: PRILOSEC PO SCH (08:14)
--- NOTE | 2019-08-17 09:52 | PROGRESS NOTE ---
DATE: 08/17/2019 INTERVAL HISTORY: No acute events overnight. SUBJECTIVE: Ms. Wick denies any complaints. She states her mother wanted to talk to me, who is not here at bedside at the moment. Her vitals otherwise have been unremarkable. She denies any new complaints. She states she wanted help to go to the bathroom. VITALS: Currently, temperature 98.5 degrees, pulse 106, respiratory rate 18, blood pressure 148/90, saturating 96% on room air. PHYSICAL EXAMINATION: Not in acute distress. Oral cavity is moist. Lungs: Air entry bilaterally equal. No wheeze, rhonchi, or crackles. S1, S2 normal. No murmur, rub, or gallop. Abdomen: Soft, nontender. She has urine catheter. Her lower extremity edema is significantly improved. She is alert. She is answering questions appropriately. Input and output suggests - 4.7 L so far. LABS: Suggestive of improvement in sodium which is 128. Normal kidney function. She has not had her magnesium level drawn, which I will draw now. MICROBIOLOGY: Blood culture and urine culture have not shown any growth. Pelvic ultrasound yesterday had normal uterus. Chest x-ray on presentation did not have acute abnormalities so I will stop the antibiotics today. ASSESSMENT AND PLAN: 1. Acute encephalopathy on presentation due to hyponatremia, likely because of excess free water intake, which is improving since presentation and use of Lasix. Continue to monitor sodium and give additional Lasix. Her mirtazapine and Seroquel have been discontinued. She is still on Depakote. 2. History of metastatic colon cancer with liver metastasis, deemed not an ideal candidate for chemotherapy by oncology team. She received hepatic artery embolization in July 2019 for liver metastasis with future plans of further embolization as per the mother. Palliative team on board. 3. History of developmental delay, epilepsy, intermittent episodes of agitation. Continue home zolpidem, divalproex, lorazepam, phenytoin, ziprasidone, melatonin, and as-needed Ativan. 4. History of hypertension, currently normotensive. I will continue her amlodipine and stop benazepril and continue atorvastatin. 5. Disposition. I will monitor patient in PVC as I await stabilization of sodium level. The patient's overall prognosis is poor, considering metastatic colon cancer. I had an extensive discussion about this with the patient's mother. Her code status is Do Not Resuscitate level 1. I will monitor her in PVC for another 24 hours. cc: Joselito Maki MD
[2019-08-17 10:37] LABS: AGAP 16; BUN 2 mg/dL (8-22); CHLORIDE 91 mmol/L (98-107); COSMO 260; CREATININE 0.4 mg/dL (0.5-0.9); ESTIMATED GFR > 60; GLUCOSE 280 mg/dL (70-104); POTASSIUM 4.4 mmol/L (3.5-5.1); SODIUM 126 mmol/L (136-145); TCO2 19 mmol/L (25-35)
[2019-08-17] MEDS ORDERED: LASIX IV ONE (12:03)
--- NOTE | 2019-08-17 14:51 | OB/GYN PROGRESS NOTE ---
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 Progress Note: Vital Signs - 24 hr 08/16/19 18:05 08/16/19 20:00 08/17/19 00:00 Temperature 97.8 F 98.1 F 98.2 F Pulse Rate 104 H 106 H 107 H Respiratory Rate 17 18 17 Blood Pressure 112/66 124/68 117/56 O2 Sat by Pulse Oximetry 97 97 93 L 08/17/19 03:45 08/17/19 07:59 08/17/19 12:22 Temperature 98.5 F 98.5 F 98.4 F Pulse Rate 100 H 106 H 111 H Respiratory Rate 18 18 17 Blood Pressure 128/85 143/90 143/82 O2 Sat by Pulse Oximetry 98 96 100 08/15/19 03:51 Urine Culture - Final Urine,Clean Catch NO PATHOGENIC GROWTH Laboratory Results - last 24 hr 08/16/19 08/16/19 08/16/19 16:42 16:51 20:22 Sodium 129 L Potassium 4.4 D Chloride 92 L Carbon Dioxide 24 L Anion Gap 13 BUN 2 L Creatinine 0.3 L Estimated GFR/1.73 m2 > 60 BUN/Creatinine Ratio 7 Glucose 270 H POC Glucose 253 H 178 H Calculated Osmolality 265 Calcium 8.8 Magnesium 08/16/19 08/17/19 08/17/19 22:52 05:58 10:02 Sodium 128 L 126 L Potassium 5.3 H D 4.4 D Chloride 95 L 91 L Carbon Dioxide 21 L 19 L Anion Gap 12 16 BUN 3 L 2 L Creatinine 0.3 L 0.4 L Estimated GFR/1.73 m2 > 60 > 60 BUN/Creatinine Ratio 10 5 Glucose 166 H 280 H D POC Glucose 184 H Calculated Osmolality 257 260 Calcium 8.7 L 9.0 Magnesium 08/17/19 08/17/19 10:02 11:01 Sodium Potassium Chloride Carbon Dioxide Anion Gap BUN Creatinine Estimated GFR/1.73 m2 BUN/Creatinine Ratio Glucose POC Glucose 247 H Calculated Osmolality Calcium Magnesium 1.6 Radha is a 44 yo CF, G0, with a h/o of pelvic pain. She was diagnosed with metastatic colon cancer in 2017 and, in 09/2018, underwent a descending colectomy followed by one radiation treatment. A gynecology consult was requested for an evaluation of her pelvic pain. A pelvic U/S was performed on 08/15/[address] and was read by Dr. De La O. Her uterus is small and measures 4.2x3.9x3.4 centimeters. Her ovaries were not visualized during the exam. There were no uterine abnormalities identified during this assessment. Based on the pelvic ultrasound results, I conclude that the etiology of Radha's pelvic pain is from another source. Gynecology will sign off at this time. Thank you for requesting the Gynecology Service.
[2019-08-17] MEDS: AMBIEN PO SCH (20:52)
[2019-08-17] MEDS: MELATONIN PO SCH (20:52)
[2019-08-18] MEDS: HUMALOG SUBQ SCH ×4 (06:23→23:19)
[2019-08-18] MEDS: DILANTIN PO SCH ×2 (06:23→18:34)
[2019-08-18 06:24] LABS: BASO# 0.02 X1000 (0.0-0.2); BASO% 0.3 % (0.0-0.8); EOS# 0.27 X1000 (0.0-0.7); EOS% 4.3 % (0.0-10.0); HEMATOCRIT 35.1 % (37.0-47.0); HEMOGLOBIN 11.8 g/dL (12.0-16.0); IMM GRAN# 0.03 X1000 (0.0-0.04); IMM GRAN% 0.5 % (0.0-0.5); LYMPH# 0.72 X1000 (1.2-3.4); LYMPH% 11.5 % (20.5-51.1); MCH 31.8 PG (27-31); MCHC 33.6 g/dL (33-37); MCV 94.6 FL (81-99); MONO# 1.05 X1000 (0.11-0.59); MONO% 16.8 % (1.7-9.3); MPV 8.6 FL (7.4-10.4); NEUT# 4.16 X1000 (1.4-6.5); NEUT% 66.6 % (42.2-75.2); PLT 410 X1000 (130-400); RBC 3.71 XMIL (4.2-5.4); WBC 6.25 X1000 (4.8-10.8)
[2019-08-18] MEDS ORDERED: BLISTEX MEDICATED BERRY LIP BALM TOP PRN (06:26)
[2019-08-18 06:50] LABS: AGAP 11; BUN 2 mg/dL (8-22); CALCIUM 9.6 mg/dL (8.8-10.2); CHLORIDE 91 mmol/L (98-107); COSMO 260; CREATININE 0.3 mg/dL (0.5-0.9); ESTIMATED GFR > 60; GLUCOSE 219 mg/dL (70-104); MAGNESIUM 1.6 mg/dL (1.5-2.7); POTASSIUM 4.2 mmol/L (3.5-5.1); SODIUM 128 mmol/L (136-145); TCO2 26 mmol/L (25-35)
[2019-08-18] MEDS: ATIVAN PO SCH (08:53)
[2019-08-18] MEDS: DEPAKOTE PO SCH ×2 (08:53→20:58)
[2019-08-18] MEDS: LIPITOR PO SCH (08:53)
[2019-08-18] MEDS: PRILOSEC PO SCH (08:53)
[2019-08-18] MEDS: GEODON PO SCH ×2 (08:53→20:58)
[2019-08-18] MEDS: DULCOLAX PR SCH ×2 (11:35→20:59)
--- NOTE | 2019-08-18 12:58 | HEMO/ONC PROGRESS NOTE ---
DATE: 08/18/2019 SUBJECTIVE: The patient is reclining in her bed, requesting help to get up this morning. Her bedside sitter states that they are waiting on nursing staff to come help get her up. The sitter states that the patient constantly complains of pain in the lower abdominal region and the need to use the bathroom. The patient does have a Marks catheter in and she has difficulty with bowel movements in the bed. She would prefer to get up. The patient is more awake and alert than she was on Sunday when I saw her. She knew who I was today. She was communicating today but she continues to appear very uncomfortable. OBJECTIVE: Vital Signs: Temperature 97.5 degrees, pulse rate 110, respiratory rate 21, blood pressure 177/94, O2 saturation 97% on room air. Nursing staff states 0/10 pain. Physical Examination: General: This is a mentally challenged, young lady who does not appear comfortable this morning. HEENT: Sclerae are anicteric. PERRLA. Oral mucosa is dry. Cardiovascular: S1 and S2 are noted. Heart rate and rhythm is tachycardic. No murmurs, gallops, or rubs noted. Respiratory: Lung sounds are clear to auscultation. Normal respiratory effort. Gastrointestinal: Abdomen is soft, nontender, nondistended. She did have bowel sounds. Extremities: No lower extremity edema noted. Laboratory: WBCs 6.25, hemoglobin 11.8, hematocrit 35.1, platelet count 410,000. Sodium 128, potassium 4.2, glucose 219. Radiology: Head CT shows no visible acute intracranial abnormality. No indication of herniation. Pelvic ultrasound shows a small uterus. No uterine abnormality. Ovaries not visible. Negative exam. ASSESSMENT AND PLAN: 1. Acute encephalopathy on presentation due to hyponatremia. This has been improving since the use of the Lasix. Continue to monitor her sodium levels per medical management. Her cognition should continue to improve. Her caretakers would like her sodium level to be near normal before discussing discharge. 2. Colon cancer with liver metastasis. The patient has had treatment and is under the care of Dr. Wayne Ochoa at the current time. Her mother is determining at this time if they will continue those treatments. 3. Type 2 diabetes with hyperglycemia. Continue to manage per medical management. 4. Epilepsy. Continue her appropriate medications. Dictated by NISHI Michel for Kevon Mcclain MD cc: Kevon Mcclain MD
[2019-08-18] MEDS: ATIVAN IV PRN (13:45)
--- NOTE | 2019-08-18 15:31 | PROGRESS NOTE ---
DATE: 08/18/2019 INTERVAL HISTORY: No acute events overnight. Ms. Wick has been a little restless today and has been requiring p.r.n. sedative medications. Her mother is at bedside. She is a little concerned about her fluctuating mental status, and I discussed with her about effects of hyponatremia and hospital-acquired delirium. SUBJECTIVE: Ms. Wick just received intravenous lorazepam and currently sedated, not in any distress. VITALS: Temperature 97.5 degrees, pulse 110, respiratory 21, blood pressure 170/90. She is saturating 97% on room air. PHYSICAL EXAMINATION: General: She is sleepy. Lungs: Air entry bilaterally equal. No wheeze, rhonchi, or crackles. Cardiovascular: S1, S2 normal. Regular. No murmur or gallop. Abdomen: Soft, nontender. Extremities: No lower extremity edema. : She has urine catheter. Neurologic: She is easily arousable to verbal stimuli, and requests to be discharged home. Input and output: Negative 800 mL. Since admission, she is negative 14 liters. LABS: Suggestive of normocytic anemia. WBC count is normal. Normal platelet count. Her sodium and chloride level are normal. Her creatinine kidney function has been unremarkable. She does have magnesium of 1.6. MICROBIOLOGY: No positive data. RADIOLOGY: No new imaging. ASSESSMENT AND PLAN: 1. Acute encephalopathy on presentation due to profound hyponatremia with sodium of 117, likely related to excess free water intake. Her Seroquel and mirtazapine use could also have contributed to it. She was also edematous on presentation, and after intravenous Lasix she put out almost 15 liters of urine, and her sodium has been stable since then. I will monitor daily basic metabolic panel. I will continue to hold her Seroquel and mirtazapine. Currently, hospital-acquired delirium could also be contributing to her fluctuating mental status. I will keep her on as-needed lorazepam. 2. History of metastatic colon cancer with liver metastasis, deemed not an ideal candidate for chemotherapy by oncology team. She received hepatic artery intervention with White 90 at [facility] with recurrence of metastatic lesion. Oncology team on board. The initial plan was to get another procedure in the future. 3. History of developmental delay, epilepsy, intermittent episodes of agitation. Continue home zolpidem, divalproex, lorazepam, phenytoin, ziprasidone, melatonin. 4. Essential hypertension, currently mostly in acceptable range. I will continue her home amlodipine and atorvastatin, and I will give her as- needed labetalol. DISPOSITION: I will transfer patient to routine medical floor. I had an extensive discussion with the patient's mother about her condition, poor prognosis considering metastatic nature of her cancer. Her code status is DNR level 1. Palliative care team has been on board. The patient's mother is considering continuing the radiation therapy and taking her back to her [facility] versus going to hospice care at her [facility] versus going to hospice care closer to where patient's mother lives. She also wanted to have further discussion with oncology team about before deciding it. Otherwise, she is medically stable to be transferred to routine medical floor. I will monitor BMP tomorrow. cc: Joselito Maki MD
[2019-08-18] MEDS: MELATONIN PO SCH (20:58)
[2019-08-18] MEDS: AMBIEN PO SCH (23:21)
[2019-08-19] MEDS: ATIVAN IV PRN ×2 (01:45→18:09)
[2019-08-19 06:51] LABS: BASO# 0.01 X1000 (0.0-0.2); BASO% 0.2 % (0.0-0.8); EOS# 0.34 X1000 (0.0-0.7); EOS% 5.1 % (0.0-10.0); HEMOGLOBIN 12.3 g/dL (12.0-16.0); IMM GRAN# 0.04 X1000 (0.0-0.04); IMM GRAN% 0.6 % (0.0-0.5); LYMPH# 0.85 X1000 (1.2-3.4); LYMPH% 12.8 % (20.5-51.1); MCH 32.1 PG (27-31); MCHC 34.2 g/dL (33-37); MONO# 1.26 X1000 (0.11-0.59); MONO% 18.9 % (1.7-9.3); MPV 8.5 FL (7.4-10.4); NEUT# 4.16 X1000 (1.4-6.5); NEUT% 62.4 % (42.2-75.2); PLT 420 X1000 (130-400); RBC 3.83 XMIL (4.2-5.4); WBC 6.66 X1000 (4.8-10.8)
[2019-08-19] MEDS: DILANTIN PO SCH ×2 (06:51→18:08)
[2019-08-19 07:18] LABS: AGAP 15; BUN 4 mg/dL (8-22); CALCIUM 9.6 mg/dL (8.8-10.2); CHLORIDE 87 mmol/L (98-107); COSMO 254; CREATININE 0.3 mg/dL (0.5-0.9); ESTIMATED GFR > 60; GLUCOSE 235 mg/dL (70-104); MAGNESIUM 1.6 mg/dL (1.5-2.7); POTASSIUM 3.9 mmol/L (3.5-5.1); SODIUM 124 mmol/L (136-145); TCO2 22 mmol/L (25-35)
[2019-08-19] MEDS: HUMALOG SUBQ SCH ×4 (07:55→22:17)
[2019-08-19] MEDS: LIPITOR PO SCH (09:08)
[2019-08-19] MEDS: PRILOSEC PO SCH (09:08)
[2019-08-19] MEDS: GEODON PO SCH ×2 (09:09→22:17)
[2019-08-19] MEDS: DEPAKOTE PO SCH (09:09)
[2019-08-19] MEDS: DULCOLAX PR SCH (09:09)
[2019-08-19] MEDS: ATIVAN PO SCH (09:14)
[2019-08-19] MEDS ORDERED: MAGNESIUM SULFATE 2 GM/S.W.I. 2 GM/50 ML IVPB IV ONE (12:00)
--- NOTE | 2019-08-19 19:50 | NEPHROLOGY CONSULTATION ---
DATE: 08/19/2019 REASON FOR CONSULTATION: Hyponatremia. HISTORY OF PRESENT ILLNESS: Ms Wick is a 44-year-old woman with low mental function who lives in a local senior care. She also has recent diagnosis of cancer that has metastasized to the liver from the colon. She has been in the hospital since the with hyperglycemia and hyponatremia. She was taking divalproex at home and drinks fairly large amount of fluid intake. Her sodium was 116 to 117 on presentation. Improved into the mid 120s with simply removing the divalproex and fluid restriction. Urine osmolality was actually low at 261. PAST MEDICAL HISTORY: As above. She also has a history of seizure disorder, diabetes, hypertension, chronic anxiety. HOME MEDICATIONS: Include metformin, docusate, divalproex, glipizide, cetirizine, phenytoin, atorvastatin, medroxyprogesterone, sitagliptin, lorazepam, Linzess, mirtazapine, fluticasone, omeprazole, diphenhydramine, zolpidem, ibuprofen, olanzapine, quetiapine, amlodipine. ALLERGIES: Codeine and penicillin. SOCIAL HISTORY: As above. FAMILY HISTORY/REVIEW OF SYSTEMS: Otherwise noncontributory. PHYSICAL EXAMINATION: Vital Signs: Blood pressure 140/77, heart rate 95, respirations 22. Afebrile. General: No acute distress. Skin is warm and dry. Conjunctivae are pink. Pupils are equal. Neck: Neck veins are not distended. Heart: Regular. No gallops or murmurs. Lungs: Equal. No crackles or wheezes. Abdomen: Soft, nontender. Bowel sounds present. Extremities: No edema, clubbing or cyanosis. IMPRESSION: Hyponatremia. Multifactorial. I counseled the staff to limit her fluid intake to 1.5 L total per day. Stop divalproex as you have done. No other changes. Okay for discharge from my perspective. cc: Joseph Rivas MD
[2019-08-19] MEDS: AMBIEN PO SCH (22:17)
[2019-08-19] MEDS: MELATONIN PO SCH (22:17)
--- NOTE | 2019-08-19 22:17 | PROGRESS NOTE ---
DATE: 08/19/2019 SUBJECTIVE: The patient is a little lethargic today. She did have a bowel movement last night. OBJECTIVE: Vital Signs: Temperature 98.2 degrees, blood pressure 120/69, heart rate 91, respirations 22, O2 saturation is 98% on room air. General: This is a middle-aged female sitting up in bed in no acute distress. Heart: S1, S2, normal. Lungs clear to auscultation bilaterally. Abdomen: Positive bowel sounds. Soft, nontender, nondistended. Extremities: No edema, no cyanosis. Neurologic: The patient is alert and oriented x3. LABORATORY DATA: White blood cell count 6.6, hemoglobin 12, hematocrit 36, platelets 420,000. Sodium 124, potassium 3.9, chloride 87, CO2 is 22, BUN 4, creatinine 0.3, glucose 235, magnesium 1.6. Serum osmolality 277, urine osmolality 325, urine sodium 20. ASSESSMENT AND PLAN: 1. Metabolic encephalopathy. Likely secondary to the underlying hyponatremia. We will continue to treat the underlying metabolic derangement. 2. Hyponatremia. The sodium has dropped to 124. The serum osmolality is 277. We will continue with fluid restriction. We will also discontinue Depakote. This was discussed with Dr. Rivas. 3. Diabetes mellitus type 2. Continue with sliding scale insulin. 4. History of metastatic colon cancer with liver metastasis. Dr. Mcclain is following. 5. Developmental delay. Aware. 6. Epilepsy. Continue on Dilantin. 7. Periodic agitation. Continue on Geodon. 8. Hypertension. Stable. 9. Deep vein thrombosis prophylaxis. We will start the patient on Lovenox. cc: Aniya Rendon MD
[2019-08-20] MEDS: ATIVAN IV PRN (01:12)
[2019-08-20] MEDS: HUMALOG SUBQ SCH ×4 (06:49→21:55)
[2019-08-20] MEDS: DILANTIN PO SCH ×2 (06:49→18:26)
[2019-08-20 07:02] LABS: HEMATOCRIT 35.9 % (37.0-47.0); HEMOGLOBIN 12.2 g/dL (12.0-16.0); MCH 32.5 PG (27-31); MCV 95.7 FL (81-99); MPV 8.5 FL (7.4-10.4); RBC 3.75 XMIL (4.2-5.4); RDW 13.5 % (11.5-14.5); WBC 7.02 X1000 (4.8-10.8)
[2019-08-20 07:42] LABS: AGAP 16; BUN 7 mg/dL (8-22); CALCIUM 9.5 mg/dL (8.8-10.2); CHLORIDE 91 mmol/L (98-107); COSMO 268; CREATININE 0.3 mg/dL (0.5-0.9); ESTIMATED GFR > 60; GLUCOSE 240 mg/dL (70-104); MAGNESIUM 1.8 mg/dL (1.5-2.7); SODIUM 131 mmol/L (136-145); TCO2 24 mmol/L (25-35)
[2019-08-20] MEDS: PRILOSEC PO SCH (08:28)
[2019-08-20] MEDS: GEODON PO SCH ×2 (08:28→21:55)
[2019-08-20] MEDS: LOVENOX SUBQ SCH (08:28)
[2019-08-20] MEDS: ATIVAN PO SCH (08:28)
[2019-08-20] MEDS: LIPITOR PO SCH (08:28)
[2019-08-20] MEDS ORDERED: DIFLUCAN PO ONE (09:59)
--- NOTE | 2019-08-20 13:08 | NEPHROLOGY PROGRESS NOTE ---
DATE: 08/20/2019 SUBJECTIVE: She is awake, alert. Asking to be repositioned in the bed. OBJECTIVE: Vital Signs: Blood pressure 139/81, heart rate 112, respiration 24, afebrile. General: No acute distress. Skin: Warm and dry. Neck: Neck veins are not appreciated. Heart: Regular. No gallops. Lungs: Equal. No crackles or wheezes. Abdomen: Soft. Extremities: No edema. IMPRESSION AND PLAN: Hyponatremia. Multifactorial related to excessive free water intake and Depakote. Depakote has been changed, and she is now restricting her fluids. Sodium is stable in the upper 120s, 127 to 128 over the last 10 hours. No changes are required. cc: Joseph Rivas MD
--- NOTE | 2019-08-20 20:51 | PROGRESS NOTE ---
DATE: 08/20/2019 SUBJECTIVE: The patient is resting comfortably in bed. She had some agitation last night and was given Ativan early this morning. OBJECTIVE: Vital Signs: Temperature 98.2, blood pressure 154/91, heart rate 119, respirations 21, O2 saturation 96% on room air. General: This is a middle-aged female lying in bed in no acute distress. Heart: S1, S2 normal. Tachycardic. Lungs: Clear to auscultation bilaterally. Abdomen: Positive bowel sounds. Soft, nontender, nondistended. Extremities: No edema, no cyanosis. Neurologic: The patient is alert and oriented x3. LABORATORY DATA: Sodium 131, potassium 4, chloride 91, CO2 24, BUN 7, creatinine 0.3, glucose 240, magnesium 1.8. ASSESSMENT AND PLAN: 1. Metabolic encephalopathy. Slowly resolving. 2. Hyponatremia. Improved. The patient's sodium is 131 today. We will continue with fluid restriction and continue to hold the Depakote. 3. Uncontrolled diabetes mellitus type 2. The patient has been started on long- acting insulin. 4. History of metastatic colon cancer with liver metastasis. Aware. Dr. Mcclain is following. 5. Epilepsy. Continue on Dilantin. 6. Periodic agitation. Continue on Geodon. 7. Developmental delay. Aware. 8. Hypertension. We will restart the patient's antihypertensive. 9. Deep vein thrombosis prophylaxis. Continue on Lovenox. 10. Will consult physical therapy. 11. Disposition: Will plan to discharge the patient once her sodium has been stable for at least 2 days in a row. cc: Aniya Rendon MD [facility]
[2019-08-20] MEDS: AMBIEN PO SCH (21:55)
[2019-08-20] MEDS: MELATONIN PO SCH (21:55)
[2019-08-21] MEDS: COREG PO SCH ×3 (06:35→20:24)
[2019-08-21] MEDS: DILANTIN PO SCH ×2 (06:43→18:33)
[2019-08-21] MEDS: HUMALOG SUBQ SCH ×4 (06:43→21:52)
--- NOTE | 2019-08-21 06:57 | Diag Imaging Result Doc PS360 ---
EXAM: CHEST-1 VIEW HISTORY: dyspnea TECHNIQUE: Single view COMPARISON: 08/15/2019 FINDINGS: Poor inspiratory effort. The heart is not enlarged. The vessels are not distended. There are no infiltrates. No effusion identified. Mild scoliosis. IMPRESSION: Negative exam. Electronically signed by Jun De La O 08/21/2019 6:55 AM
[2019-08-21 07:14] LABS: AGAP 16; BUN 6 mg/dL (8-22); CALCIUM 9.6 mg/dL (8.8-10.2); CHLORIDE 89 mmol/L (98-107); COSMO 265; CREATININE 0.4 mg/dL (0.5-0.9); ESTIMATED GFR > 60; GLUCOSE 275 mg/dL (70-104); SODIUM 128 mmol/L (136-145); TCO2 23 mmol/L (25-35)
[2019-08-21] MEDS: LIPITOR PO SCH (08:50)
[2019-08-21] MEDS: ATIVAN PO SCH (08:50)
[2019-08-21] MEDS: LOTREL 5/20 MG PO SCH (08:50)
[2019-08-21] MEDS: LOVENOX SUBQ SCH (08:50)
[2019-08-21] MEDS: GEODON PO SCH ×2 (08:50→20:23)
[2019-08-21] MEDS: PRILOSEC PO SCH (08:54)
--- NOTE | 2019-08-21 13:59 | PROVIDER PROGRESS NOTE ---
Progress Note Subjective: Pt voices getting to go home today. She denies any uremic complaints Objective: temperature 97.6, pulse 93, respirations 30, or pressure 160/89, 02 sat 97% on room air. General: middle aged white female sitting up in chair in no acute distress HEENT: normocephalic, atraumatic, pupils equal and reactive, mucous membranes moist, trachea midline Skin: warm and dry Neck: supple, no jvd in upright position Cardiovascular: S1S2, tachycardic rate and rhythm, no murmur or gallop Respiratory: clear anteriorly with equal air movement Abdomen: soft, nontender, nondistended, bowel sounds present : non inspected ying in place Extremities: no clubbing or edema Neurological: alert, oriented to person and place. Labs: in take 565, output 2500. Sodium 128, potassium 4.0, chloride 89, carbon dioxide 23, BUN6, creatinine 0.4. Impression: Hyponatremia. Improving with fluid restrictions and discontinuing Depakote. She is planning to discharge today. Blood pressure. Above target. She started amlodipine/benazepril hcl today. Electrolytes and acid base balance. Stable. We will sign off. aaron
[2019-08-21] MEDS: AMBIEN PO SCH (20:24)
[2019-08-21] MEDS: MELATONIN PO SCH (20:24)
[2019-08-21] MEDS: LEVEMIR SUBQ SCH (21:53)
[2019-08-21] MEDS ORDERED: INSULIN PEN NEEDLES ONE (22:07)
--- NOTE | 2019-08-21 22:48 | PROGRESS NOTE ---
DATE: 08/21/2019 SUBJECTIVE: The patient is awake and alert today. She states that she wants to go home. OBJECTIVE: Vital Signs: Temperature 98.1 degrees, blood pressure 154/83, heart rate 108, respirations 20, O2 saturation 100% on room air. General: This is a middle-aged female sitting up in bed in no acute distress. Heart: S1, S2 normal. Tachycardic. Lungs: Clear to auscultation bilaterally. Abdomen: Positive bowel sounds. Soft, nontender, nondistended. Extremities: No edema. No cyanosis. Neurologic: The patient is alert and oriented x3. LABS: Sodium 128, potassium 4, chloride 89, CO2 23, BUN 6, creatinine 0.4, glucose 275. ASSESSMENT AND PLAN: 1. Metabolic encephalopathy. Resolved. 2. Hyponatremia. The patient's sodium is on the low end, but stable. Continue with fluid restriction and the Depakote has been discontinued. 3. Uncontrolled diabetes mellitus type 2. We will start the patient on Levemir 20 units twice a day. 4. History of metastatic colon cancer with liver metastasis. Aware. 5. Epilepsy. Continue on Dilantin. 6. Developmental delay. Aware. 7. Hypertension. Continue on the current antihypertensive regimen. 8. Disposition. The patient should be stable for discharge to the [facility] tomorrow. cc: Aniya Rendon MD
[2019-08-22] MEDS: DILANTIN PO SCH ×2 (06:46→21:19)
[2019-08-22] MEDS: HUMALOG SUBQ SCH ×4 (06:59→21:20)
[2019-08-22 08:08] LABS: ESTIMATED GFR > 60
[2019-08-22 08:16] LABS: AGAP 17; BUN 6 mg/dL (8-22); CALCIUM 9.8 mg/dL (8.8-10.2); CHLORIDE 83 mmol/L (98-107); COSMO 249; CREATININE 0.4 mg/dL (0.5-0.9); GLUCOSE 227 mg/dL (70-104); POTASSIUM 3.9 mmol/L (3.5-5.1); SODIUM 121 mmol/L (136-145); TCO2 21 mmol/L (25-35)
[2019-08-22] MEDS: ATIVAN PO SCH (09:20)
[2019-08-22] MEDS: LEVEMIR SUBQ SCH ×2 (09:20→21:25)
[2019-08-22] MEDS: GEODON PO SCH (09:20)
[2019-08-22] MEDS: PRILOSEC PO SCH (09:20)
[2019-08-22] MEDS: LOVENOX SUBQ SCH (09:20)
[2019-08-22] MEDS: LIPITOR PO SCH (09:20)
[2019-08-22] MEDS: LOTREL 5/20 MG PO SCH (09:20)
[2019-08-22] MEDS: COREG PO SCH ×2 (09:20→21:16)
--- NOTE | 2019-08-22 09:37 | HEMO/ONC PROGRESS NOTE ---
DATE: 08/22/2019 SUBJECTIVE: The patient is awake and alert this morning. She is requesting to go home. She continues to have some agitation. Her mother has decided she is going home on hospice. OBJECTIVE: Vital Signs: Temperature 97.5 degrees, pulse rate 101, respiratory rate 16, blood pressure 154/90, O2 saturation 98% on room air. She is in 0/10 pain. General: No acute distress. HEENT: PERRLA. Sclerae anicteric. Oral mucosa normal. Cardiovascular: Normal S1, S2. Tachycardic rate and rhythm. Respiratory: Lung sounds clear to auscultation. Normal respiratory effort. Abdomen: Soft, nontender, nondistended. Skin: No ecchymosis, petechiae, or rashes noted. Extremities: No lower extremity edema noted. LABORATORY DATA: Sodium 121, potassium 3.9 creatinine 0.4, glucose 227. ASSESSMENT AND PLAN: 1. Metabolic encephalopathy has resolved. 2. Hyponatremia. The patient's sodium level continues to stay low, need to continue with fluid restriction. Her Depakote has been discontinued. Please continue to manage per Dr. Rivas's orders. 3. Uncontrolled type 2 diabetes. 4. History of metastatic colon cancer with liver metastases. We will care for the patient in the outpatient setting. I believe there has been discussions with her mother as to whether she is going to hospice or back to her alf. We we have those discussions with her mother and manage her wishes as appropriate. Please call us if needed over the weekend. Dictated by NISHI Michel for Kevon Mcclain MD cc: MD PHOEBE Newberry
[2019-08-22] MEDS ORDERED: NS 1,000 ML IV SCH (14:45)
[2019-08-22] MEDS ORDERED: INSULIN PEN NEEDLES ONE (15:26)
[2019-08-22] MEDS ORDERED: HALDOL IM ONE (17:23)
[2019-08-22] MEDS ORDERED: MIRALAX PO ONE (17:24)
[2019-08-22] MEDS ORDERED: LACTULOSE PO ONE (17:24)
[2019-08-22] MEDS: MELATONIN PO SCH (21:16)
[2019-08-22] MEDS: AMBIEN PO SCH (21:17)
[2019-08-23] MEDS: GEODON PO SCH ×3 (00:54→20:56)
--- NOTE | 2019-08-23 07:30 | PROGRESS NOTE ---
DATE: 08/22/2019 SUBJECTIVE: The patient is resting comfortably. She complains of constipation. OBJECTIVE: Vital Signs: Temperature 98 degrees, blood pressure 138/92, heart rate 102, respirations 16, O2 saturation is 100% on room air. Intake 670, output 2.2 L. General: This is a middle-aged to elderly female sitting in bed in no acute distress. Heart: S1, S2 normal. Regular rate and rhythm. Lungs: Equal air entry bilaterally. No wheezing. No rales. Abdomen: Positive bowel sounds. Soft, nontender, nondistended. Extremities: No edema. No cyanosis. Neurologic: The patient is alert and oriented x3. LABS: Sodium 120, potassium 3.9, chloride 83, CO2 21, BUN 6, creatinine 0.4, glucose 227. ASSESSMENT AND PLAN: 1. Hyponatremia. We will start the patient on normal saline and monitor the sodium every 4 hours. A repeat urine osmolality and urine sodium have been ordered. 2. Uncontrolled diabetes mellitus type 2. Continue on Levemir plus sliding scale insulin. 3. Intermittent agitation. Continue with p.r.n. Ativan. 4. Epilepsy. Continue on Dilantin. 5. History of metastatic colon cancer with liver metastasis. Aware. 6. Hypertension. Continue on the current antihypertensive regimen. 7. Disposition. The patient's mother has decided to have the patient be started on hospice upon return to the nursing home. We will plan to discharge the patient to the nursing home on Sunday. cc: Aniya Rendon MD
[2019-08-23] MEDS: HUMALOG SUBQ SCH ×4 (07:35→20:59)
[2019-08-23 07:36] LABS: HEMATOCRIT 37.3 % (37.0-47.0); HEMOGLOBIN 12.9 g/dL (12.0-16.0); MCH 32.3 PG (27-31); MCHC 34.6 g/dL (33-37); MCV 93.5 FL (81-99); MPV 8.2 FL (7.4-10.4); RBC 3.99 XMIL (4.2-5.4); RDW 13.1 % (11.5-14.5); WBC 6.29 X1000 (4.8-10.8)
[2019-08-23 07:51] LABS: AGAP 18; BUN 4 mg/dL (8-22); CALCIUM 9.4 mg/dL (8.8-10.2); CHLORIDE 90 mmol/L (98-107); COSMO 257; CREATININE 0.4 mg/dL (0.5-0.9); ESTIMATED GFR > 60; GLUCOSE 124 mg/dL (70-104); POTASSIUM 3.8 mmol/L (3.5-5.1); SODIUM 129 mmol/L (136-145); TCO2 21 mmol/L (25-35)
[2019-08-23] MEDS ORDERED: SAMSCA PO ONE (08:00)
[2019-08-23] MEDS: LOTREL 5/20 MG PO SCH (08:27)
[2019-08-23] MEDS: LACTULOSE PO SCH ×2 (08:27→20:56)
[2019-08-23] MEDS: LIPITOR PO SCH (08:27)
[2019-08-23] MEDS: DILANTIN PO SCH ×2 (08:28→20:56)
[2019-08-23] MEDS: COREG PO SCH ×2 (08:28→20:56)
[2019-08-23] MEDS: PRILOSEC PO SCH (08:28)
[2019-08-23] MEDS: LOVENOX SUBQ SCH (08:29)
[2019-08-23] MEDS: LEVEMIR SUBQ SCH (08:29)
[2019-08-23] MEDS: ATIVAN PO SCH (08:29)
[2019-08-23] MEDS: MIRALAX PO SCH (08:30)
[2019-08-23] MEDS ORDERED: ATIVAN IV ONE (08:53)
[2019-08-23] MEDS: MELATONIN PO SCH (20:56)
[2019-08-23] MEDS: AMBIEN PO SCH (20:57)
[2019-08-23] MEDS ORDERED: LEVEMIR SUBQ SCH (21:00)
[2019-08-24] MEDS ORDERED: ATIVAN IV ONE ×2 (01:51→10:08)
--- NOTE | 2019-08-24 03:24 | PROGRESS NOTE ---
DATE: 08/23/2019 SUBJECTIVE: The patient slept last night; however, she is agitated this morning. OBJECTIVE: Vital signs: Temperature 98.9 degrees, blood pressure 137/73, heart rate 96, respirations 18, O2 saturation 97% on room air. Urine output 2.5 L. General: This is a middle- aged female sitting in a chair, no acute distress. Heart: S1, S2. Normal. Lungs: Equal air entry bilaterally. No wheezing. No rales. Abdomen: Positive bowel sounds. Soft, nontender, nondistended. Extremities: No edema. No cyanosis. Neuro: The patient is alert and oriented x3. LABS: Sodium 129, potassium 3.8, chloride 90, CO2 of 21, BUN 4, creatinine 0.4. Glucose 124. White blood cell count 6.2, hemoglobin 12, hematocrit 37, platelets 458,000. ASSESSMENT AND PLAN: 1. Hyponatremia. Improved. 2. Uncontrolled diabetes mellitus type 2. Continue on Levemir and sliding scale insulin. 3. Intermittent agitation. Continue with p.r.n. Ativan. 4. History of metastatic colon cancer with liver metastasis. Aware. The patient's mother has decided that the [facility]. 5. Hypertension. Continue on the current antihypertensive regimen. 6. Disposition. [facility]. cc: Aniya Rendon MD
[2019-08-24] MEDS: HUMULIN R SUBQ SCH ×4 (07:12→22:21)
[2019-08-24 08:20] LABS: AGAP 15; BUN 6 mg/dL (8-22); CALCIUM 9.8 mg/dL (8.8-10.2); CHLORIDE 95 mmol/L (98-107); COSMO 270; CREATININE 0.4 mg/dL (0.5-0.9); ESTIMATED GFR > 60; GLUCOSE 173 mg/dL (70-104); SODIUM 134 mmol/L (136-145); TCO2 24 mmol/L (25-35)
[2019-08-24] MEDS: LACTULOSE PO SCH ×2 (09:22→22:09)
[2019-08-24] MEDS: LEVEMIR SUBQ SCH ×2 (09:22→22:17)
[2019-08-24] MEDS: LOVENOX SUBQ SCH (09:23)
[2019-08-24] MEDS: COREG PO SCH ×2 (09:23→22:08)
[2019-08-24] MEDS: LOTREL 5/20 MG PO SCH (09:24)
[2019-08-24] MEDS: PRILOSEC PO SCH (09:24)
[2019-08-24] MEDS: DILANTIN PO SCH ×2 (09:24→22:05)
[2019-08-24] MEDS: MIRALAX PO SCH (09:24)
[2019-08-24] MEDS: GEODON PO SCH ×2 (09:24→22:05)
[2019-08-24] MEDS: ATIVAN PO SCH (09:24)
[2019-08-24] MEDS: LIPITOR PO SCH (09:24)
[2019-08-24] MEDS: MELATONIN PO SCH (22:06)
[2019-08-24] MEDS: AMBIEN PO SCH (22:15)
--- NOTE | 2019-08-25 04:55 | PROGRESS NOTE ---
DATE: 08/24/2019 SUBJECTIVE: The patient is resting comfortably in bed. She has been agitated all morning. OBJECTIVE: Vital Signs: Temperature 98.5 degrees, blood pressure 137/80, heart rate 98, respirations 18, O2 saturation 95% on room air. General: This is a middle-aged female sitting in the chair in no acute distress. Heart: S1, S2 normal. Regular rate and rhythm. Lungs: Equal air entry bilaterally. No wheezing. No rales. No rhonchi. Abdomen: Positive bowel sounds. Soft, nontender, nondistended. Extremities: No edema, no cyanosis. Neurologic: The patient is alert and oriented x3. LABS: Sodium 134, potassium 4, chloride 95, CO2 24, BUN 6, creatinine 0.4, glucose 173. ASSESSMENT AND PLAN: 1. Hyponatremia, improved. The sodium is 134 today. 2. Insulin-dependent diabetes mellitus type 2. Continue on Levemir and metformin. 3. Intermittent agitation. Continue with Ativan as needed. 4. Seizure disorder. Continue on Dilantin. 5. Metastatic colon cancer with liver metastasis. Aware. The patient will be discharged to the longterm tomorrow with hospice. 6. Hypertension. Stable. 7. Disposition: The patient will be discharged to the longterm with hospice on Sunday. cc: Aniya Rendon MD
[2019-08-25] MEDS: HUMULIN R SUBQ SCH (06:30)
[2019-08-25] MEDS ORDERED: GLUCOPHAGE PO SCH (08:00)
[2019-08-25 08:05] VITALS: BP 155/102
[2019-08-25] MEDS: LOVENOX SUBQ SCH (08:25)
[2019-08-25] MEDS: COREG PO SCH (08:25)
[2019-08-25] MEDS: PRILOSEC PO SCH (08:25)
[2019-08-25] MEDS: GEODON PO SCH (08:25)
[2019-08-25] MEDS: LOTREL 5/20 MG PO SCH (08:26)
[2019-08-25] MEDS: DILANTIN PO SCH (08:26)
[2019-08-25] MEDS: LACTULOSE PO SCH (08:26)
[2019-08-25] MEDS: LIPITOR PO SCH (08:26)
[2019-08-25] MEDS: MIRALAX PO SCH (08:26)
[2019-08-25] MEDS: LEVEMIR SUBQ SCH (08:34)
[2019-08-25] MEDS: ATIVAN PO SCH (08:50)
[2019-08-25] MEDS ORDERED: PNEUMOVAX 23 IM ONE (11:00)
--- NOTE | 2019-08-31 21:03 | DISCHARGE SUMMARY ---
ADMISSION DATE: 08/15/2019 DISCHARGE DATE: 08/25/2019 FINAL DISCHARGE DIAGNOSES: 1. Hyponatremia. 2. Insulin-dependent diabetes mellitus type 2. 3. Intermittent agitation. 4. Seizure disorder. 5. Hypertension. 6. Metastatic colon cancer with liver metastasis. HOSPITAL COURSE: Ms. Wick is a 44-year-old female with a history of multiple medical problems who presented to the ER with confusion. On admission, the patient was noted to have a sodium of 117. The patient was admitted to the hospitalist service. Initially, the patient was treated with IV fluids which resulted in a slow improvement in the sodium, however, the sodium level stalled at 118 and the patient was placed on fluid restriction with further improvement in her sodium. After discussion with the patient's mother, she opted for the patient to be discharged back to the longterm with hospice services. The patient was ultimately cleared for discharge to the longterm with hospice services on 08/25/2019. DISCHARGE MEDICATIONS: 1. Coreg 6.25 mg oral every 12 hours. 2. Geodon 40 mg oral twice a day. 3. Levemir 35 units subcutaneous twice a day. 4. MiraLAX 17 g oral daily. 5. Melatonin 5 mg oral at bedtime. 6. Metformin 1000 mg oral twice a day. 7. Colace 100 mg oral twice a day. 8. Zyrtec 10 mg oral daily. 9. Dilantin 200 mg oral twice a day. 10. Lipitor 20 mg oral daily. 11. Januvia 100 mg oral daily. 12. Lorazepam 0.5 mg oral every morning. 13. Linzess 290 mcg oral daily. 14. Remeron 0.5 mg oral at bedtime. 15. Multivitamin 1 tab oral daily. 16. Flonase 2 sprays inhaled daily. 17. Prilosec 20 mg oral every morning. 18. Ambien 10 mg p.o. daily. 19. Olanzapine 10 mg oral twice a day. 20. Quetiapine 400 mg oral daily. 21. Amlodipine benazepril 1 tab oral daily. DISCHARGE DIET: 1800 ADA diet. DISCHARGE INSTRUCTIONS: The patient will be discharged back to the longterm with hospice services. cc: Aniya Rendon MD
== END 2019-08-25 11:49 | disposition hospice, home (50) | DRG 640 ==
LOC: ED 02:05 → SUATTDRO 06:42 → EDIPHOLD 06:42 → 2N 10:23 → 4N 08-18 18:01
PROVIDERS: ATTEND Internal Medicine